=== PATIENT | female | born 1975 | race Two or more races ===

== ENCOUNTER 2025-05-14 16:33 | Emergency (ER) | payer MEDICAID, OTHER ==
[~2025-05-14] VITALS: Ht 170.2 cm; Wt 92.1 kg
[2025-05-14 18:27] VITALS: BP 141/80; PULSE 88; RESP 16; TEMP 98.1; O2SAT 97
[2025-05-14] MEDS: SODIUM CHLORIDE 0.9% 500 ML IVB ONE (18:29)
[2025-05-14] MEDS: KETOROLAC TROMETH 30 MG/ML 1ML VIAL IV ONE (18:29)
[2025-05-14] MEDS: METOCLOPRAMIDE HCL 5MG/ml INJ 2ml VIAL IV ONE (18:29)
[2025-05-14 18:41] LABS: Hematocrit 41.2 % (36.0-46.0); Hemoglobin 14.1 g/dL (12.2-16.2); Mean Corpuscular Hemoglobin 28.3 pg (28.0-32.0); Mean Corpuscular Volume 82.9 fL (80.0-100.0); Nucleated Red Blood Cells % 0.1 %
[2025-05-14 18:49] LABS: Chloride 106 mmol/L (98-107); Potassium 3.9 mmol/L (3.5-5.1); Sodium 141 mmol/L (136-145)
[2025-05-14 18:50] LABS: Anion Gap 7 (5-15); Carbon Dioxide 28 mmol/L (20-31)
[2025-05-14 18:51] LABS: Calcium 8.9 mg/dL (8.7-10.4)
[2025-05-14 18:55] LABS: BUN/Creatinine Ratio 15.2 (10.0-20.0); Blood Urea Nitrogen 12 mg/dL (9-23); Glucose 165 mg/dL (74-106)
[2025-05-14 19:06] LABS: Urine Protein, UAD Negative (Negative)
--- NOTE | 2025-05-14 19:28 | ED.PDOC ---
GI ASSESSMENT HPI Comments 50-year-old female presented to the emergency department complaining of left flank pain going to the abdomen for the past few days with the nausea Chief Complaint: Abdominal Pain Time Seen by MD: 17:30 Reviewed Notes: Nurses Notes, Medications, Allergies Allergies: Coded Allergies: NO KNOWN ALLERGIES (Unverified , 05/14/25) Home Meds Active Scripts Ondansetron Odt 4MG Tab (ZOFRAN PO) 4 Mg Tb, 4 MG PO TID for 10 Days, #30 TAB ODT TAB-DISSOLVE IN MOUTH, THEN SWALLOW Prov:MARY DASILVA MD 05/14/25 Ciprofloxacin Hcl (Cipro) 500 Mg Tab, 1 TAB PO BID for 10 Days, #20 TAB Prov:MARY DASILVA MD 05/14/25 Information Source: Patient Mode of Arrival: Ambulatory Timing: Days Duration: Since onset Quality: Aching, Cramping, Stabbing Vomitus: None Stool: Normal Severity: Moderate, Severe Recent: None Recent Hx of: Urolithiasis Pain Location: LLQ, Suprapubic (lank), Other Modifying Factors: Nothing Associated sign and symptoms: Nausea, Abdominal Pain Past Medical History PAST MEDICAL HISTORY: Asthma Surgical History: Denies all surgeries POSTING SPECIALIST History: No Pertinent POSTING SPECIALIST History Family History Family History: Reviewed,noncontributory to illness, No family hx of Cancer, No family hx of DM, No family hx of Heart ralph, No family hx of HTN, No family hx ofKidney ralph, No family hx of Liver ralph, No family hx of Lung ralph, No family hx of Stroke Social History Smoker: Non-Smoker Alcohol: Denies ETOH Use Drugs: Denies Drug Use Constitutional: denies: chills, diaphoresis, fatigue, fever, malaise, sweats, weakness, others EENTM: denies: blurred vision, double vision, ear bleeding, ear discharge, ear drainage, ear pain, ear ringing, eye pain, eye redness, hearing loss, mouth pain, mouth swelling, nasal discharge, nose bleeding, nose congestion, nose pain, photophobia, tearing, throat pain, throat swelling, voice changes, others Respiratory: denies: cough, hemoptysis, orthopnea, SOB at rest, shortness of breath, SOB with excertion, stridor, wheezing, others Cardiovascular: denies: chest pain, dizzy spells, diaphoresis, Dyspnea on exertion, edema, irregular heart beat, left arm pain, lightheadedness, palpitations, PND, syncope, others Gastrointestinal: reports: abdominal pain Genitourinary: reports: flank pain; denies: abnormal vagina bleeding, burning, dyspareunia, dysuria, frequency, hematuria, incontinence, pain, , vagina discharge, urgency, others Neurological: denies: dizziness, fainting, headache, left sided numbness, left sided weakness, numbness, paresthesia, pre-existing deficit, right sided numbness, right sided weakness, seizure, speech problems, tingling, tremors, weakness, others Musculoskeletal: reports: back pain; denies: gout, joint pain, joint swelling, muscle pain, muscle stiffness, neck pain, others Integumetry: denies: bruises, change in color, change in hair/nails, dryness, laceration, lesions, lumps, rash, wounds, others Allergic/Immunocompromised: denies: Difficulty Healing, Frequent Infections, Hives, Itching, others Hematologic/Lymphatic: denies: anemia, blood clots, easy bleeding, easy bruising, swollen glands, others Endocrine: denies: excessive hunger, excessive sweating, excessive thirst, excessive urination, flushing, intolerance to cold, intolerance to heat, unexplained weight gain, unexplained weight loss, others Psychiatric: denies: anxiety, bipolar disorder, depression, hopeless, panic disorder, schizophrenia, sleepless, suicidal, others All Other Systems: Reviewed and Negative Physical Exam General Appearance: Moderate Distress, Obese HEENT: Normal ENT Inspection, PERRL/EOMI Neck: Full Range of Motion, Non-Tender, Normal, Normal Inspection Respiratory: Chest Non-Tender, Lungs Clear, No Accessory Muscle Use, No Respiratory Distress, Normal Breath Sounds Cardiovascular: No Edema, No JVD, No Murmur, No Gallop, Normal Peripheral Pulses, Regular Rate/Rhythm Breast Exam: Deferred Gastrointestinal: LUQ, Other (Left flank) Genitalia: Deferred Pelvic: Deferred Rectal: Deferred Extremities: No calf tenderness, Normal capillary refill, Normal inspection, Normal range of motion, Non-tender, No pedal edema Neurologic: Alert, conveyor maintenance mechanic II-XII nml as Tested, No Motor Deficits, Normal Affect, Normal Mood, No Sensory Deficits Cerebellar Function: Normal Reflexes: Normal Skin: Dry, Normal Color, Warm Peripheral Pulses: 1+ carotid (R), 1+ carotid (L) Lymphatic: No Adenopathy Was a procedure done? Was a procedure done?: No GI differential Dx Differential Diagnosis: UTI, Urolithiasis, Electrolyte Imbalance, Anemia X-Ray, Labs, Meds, VS Vital Signs Date Time Temp Pulse Resp B/P (MAP) Pulse Ox O2 Delivery O2 Flow Rate FiO2 05/14/25 18:27 88 16 97 Room Air* 0 21 05/14/25 18:27 98.1 88 16 141/80 (100) 97 98.1 05/14/25 16:34 98.8 87 16 143/108 97 98.8 Lab Test 05/14/25 18:56 05/14/25 18:23 Range/Units Urine Color Light-yellow Yellow Urine Clarity Clear Clear Urine pH 5.5 5.0-9.0 Urine Specific [place] 1.021 1.001-1.035 Urine Protein Negative Negative Urine Ketones Negative Negative Urine Blood 1+ H Negative /uL Urine Nitrite Negative Negative Urine Bilirubin Negative Negative Urine Urobilinogen Normal Negative mg/dL Urine Leukocyte Esterase 2+ Negative /uL Urine RBC 6 0 - 4 /hpf Urine Microscopic WBC 7 H 0-5 /HPF Urine Squamous Epithelial Cells Few <5 /hpf Urine Bacteria Few H None Seen /hpf Urine Glucose Normal Normal mg/dL White Blood Count 9.0 4.4-10.8 10^3/uL Red Blood Count 4.97 4.0-5.20 10^6/uL Hemoglobin 14.1 12.2-16.2 g/dL Hematocrit 41.2 36.0-46.0 % Mean Corpuscular Volume 82.9 80.0-100.0 fL Mean Corpuscular Hemoglobin 28.3 28.0-32.0 pg Mean Corpuscular Hemoglobin Concent 34.2 32.0-36.0 g/dL Red Cell Distribution Width 13.7 11.8-14.3 % Platelet Count 343 140-450 10^3/uL Mean Platelet Volume 8.2 6.9-10.8 fL Neutrophils (%) (Auto) 57.9 37.0-80.0 % Lymphocytes (%) (Auto) 32.1 10.0-50.0 % Monocytes (%) (Auto) 6.2 0.0-12.0 % Eosinophils (%) (Auto) 3.2 0.0-7.0 % Basophils (%) (Auto) 0.6 0.0-2.0 % Neutrophils # (Auto) 5.2 1.6-8.6 10 ^3/uL Lymphocytes # (Auto) 2.9 0.4-5.4 10 ^3/uL Monocytes # (Auto) 0.6 0-1.3 10 ^3/uL Eosinophils # (Auto) 0.3 0-0.8 10 ^3/uL Basophils # (Auto) 0.1 0-0.2 10 ^3/uL Nucleated Red Blood Cells 0.1 % Sodium Level 141 136-145 mmol/L Potassium Level 3.9 3.5-5.1 mmol/L Chloride Level 106 98-107 mmol/L Carbon Dioxide Level 28 20-31 mmol/L Anion Gap 7 5-15 Blood Urea Nitrogen 12 9-23 mg/dL Creatinine 0.79 0.550-1.02 mg/dL Glomerular Filtration Rate Calc 92 >90 mL/min BUN/Creatinine Ratio 15.2 10.0-20.0 Serum Glucose 165 H 74-106 mg/dL Calcium Level 8.9 8.7-10.4 mg/dL Current Medications Medications (Trade) Dose Ordered Sig/Brandy Route Start Time Stop Time Status Last Admin Metoclopramide HCl (Reglan Injection) 10 mg ONCE ONCE IV 05/14/25 18:15 05/14/25 18:19 DC 05/14/25 18:29 Sodium Chloride 500 ml @ 500 mls/hr Q1H ONCE IVB 05/14/25 18:15 05/14/25 19:14 DC 05/14/25 18:29 Ketorolac Tromethamine (Toradol Injection) 30 mg ONCE ONCE IV 05/14/25 18:15 05/14/25 18:19 DC 05/14/25 18:29 X-Ray, Labs, Meds, VS Comment Course in the emergency department eventful patient with a blood pressure 143/ 108 and severe left flank pain CBC is normal Urine shows 1+ blood 2+ leukocyte esterase and bacteria BNP blood sugar and 160s rest is normal CT abdomen and pelvis shows hepatic steatosis other issues Patient will be discharged home to follow up with the his PCP Time of 1ST Reevaluation: 17:30 Reevaluation 1ST: Unchanged Time of 2ND Reevaluation: 21:16 Reevaluation 2ND: Improved Consultation: PCP Patient Education/Counseling: Diagnosis, Treatment, Prognosis, Need For Follow Up Family Education/Counseling: Diagnosis, Treatment, Prognosis, Need For Follow Up, No Family Present SEPSIS Sepsis Screen Date sepsis recognized/suspect: May 14, 2025 Time Sepsis recognized/suspect: 1826 Recent Procedure: No On Antibiotic Therapy: No Respiratory Rate >20: No Heart Rate >90: No Temp<36 C (96.8 F) or >38.3 C: No SBP <90 or MAP <65 mmHG: No New Acute Mental Status Change: No Is the patient on CPAP, BIPAP,: No Physician Orders Ct Ab Pel Wo Con-No Oral Or Iv (05/14/25 18:15) Heplock Iv (05/14/25 18:15) Vital Signs Date Time Temp Pulse Resp B/P (MAP) Pulse Ox O2 Delivery O2 Flow Rate FiO2 05/14/25 18:27 88 16 97 Room Air* 0 21 05/14/25 18:27 98.1 88 16 141/80 (100) 97 98.1 05/14/25 16:34 98.8 87 16 143/108 97 98.8 Laboratory Tests Test 05/14/25 18:23 White Blood Count 9.0 10^3/uL (4.4-10.8) Medications Medications Dose Ordered Sig/Brandy Route Start Time Stop Time Status Last Admin Dose Admin Ketorolac Tromethamine 30 mg ONCE ONCE IV 05/14/25 18:15 05/14/25 18:19 DC 05/14/25 18:29 Metoclopramide HCl 10 mg ONCE ONCE IV 05/14/25 18:15 05/14/25 18:19 DC 05/14/25 18:29 Sodium Chloride 500 ml @ 500 mls/hr Q1H ONCE IVB 05/14/25 18:15 05/14/25 19:14 DC 05/14/25 18:29 Departure 1 Departure Time of Disposition: 21:12 Impression: Primary Impression: Urinary tract infection Qualified Codes: N30.01 - Acute cystitis with hematuria Additional Impression: Left flank pain Disposition: HOME / SELF CARE / HOMELESS Condition: Fair Additional Instructions: Push fluids and follow up with your PCP e-Prescriptions Ondansetron Odt 4MG Tab (ZOFRAN PO) 4 Mg Tb 4 MG PO TID for 10 Days, #30 TAB ODT TAB-DISSOLVE IN MOUTH, THEN SWALLOW Prov: MARY DASILVA MD 05/14/25 Ciprofloxacin Hcl (Cipro) 500 Mg Tab 1 TAB PO BID for 10 Days, #20 TAB Prov: MARY DASILVA MD 05/14/25 Discharged With: Self Critical Care Note Critical Care Time?: No Stability Stability form required: No Heart Score Heart Score: Heart Score Response (Comments) Value History N/A 0 EKG N/A 0 Age 45-64 1 Risk Factors 1 or 2 risk factors 1 Troponin N/A 0 Total 2 MARY DASILVA MD May 14, 2025 19:28
--- NOTE | 2025-05-14 19:28 | DVH ---
Exam: CT CT AB PEL WO CON-NO ORAL OR IV History: Ureteral calculus Comparison Study: CT CT AB PEL WITH IV CON ONLY on DOS: 11/09/24 TECHNIQUE: Multidetector CT of the abdomen and pelvis was performed from lung bases to pubic symphysi s. Imaging was performed without IV contrast. Axial, coronal, and sagittal multiplanar reformats were obtained from the axial data set by the technologist. RADIATION DOSE: CTDI vol 13.27 mGy. DLP 806.86 mGy.cm Findings: Limited evaluation of the solid organs in the absence of IV contrast. Lungs: Mild basilar atelectasis. Liver: Diffuse hypoattenuation of the liver suggestive of hepatic steatosis. Hepatomegaly. Spleen: Unremarkable. Pancreas: Unremarkable. Gallbladder: Prior cholecystectomy. Adrenals: Unremarkable Kidneys: Punctate left nephrolithiasis. Too small to characterize right renal lesions. Pelvic Viscera: Unremarkable. Vasculature: Unremarkable. Retroperitoneum: Unremarkable. Bowel: No bowel obstruction. Appendix is normal. Musculoskeletal: Unremarkable. Soft tissues: Tiny fat containing umbilical hernia. Impression: 1. No acute abdominopelvic abnormality. 2. Incidental findings as detailed.
[2025-05-14] MEDS ORDERED: CIPR-173 PO (21:14)
[2025-05-14] MEDS ORDERED: ZOFR4T PO (21:14)
== END 2025-05-14 21:30 | disposition home or self-care (01) ==
LOC: ER 16:33
DX: N39.0 Urinary tract infection, site not specified (principal); R10.A2 Flank pain, left side; J45.909 Unspecified asthma, uncomplicated; Z79.899 Other long term (current) drug therapy
CPT/HCPCS: 36415; 74176; 80048; 81001; 85025; 96361; 96374; 96375; 99285; J1885; J2765; J7040

== ENCOUNTER 2025-07-06 12:03 | Inpatient (IN) | payer MEDICAID ==
[~2025-07-06] VITALS: Ht 160 cm; Wt 88.4 kg
[~2025-07-06 12:03] MED LIST: CIPR-173 PO; ZOFR4T PO
--- NOTE | 2025-07-06 13:03 | ED.PDOC ---
GI ASSESSMENT HPI Comments 50 y/o F, presents to the ED for CC of constipation presents to the ED for CC of constipation. Patient states, she has been experiencing abdominal pain with associated constipation, nausea, and vomiting x1week. Patient reports, to have had a "small" and "dark" stool today (07/06/25). At this time patient c/o 9/10 abdominal pain. Patient denies fever, chills, or hematemesis. No other symptoms or modifying factors are present at this time. Chief Complaint: Abdominal Pain Time Seen by MD: 13:00 Reviewed Notes: Nurses Notes, Medications, Allergies Allergies: Coded Allergies: NO KNOWN ALLERGIES (Unverified , 05/14/25) Home Meds Active Scripts Ondansetron Odt 4MG Tab (ZOFRAN PO) 4 Mg Tb, 4 MG PO TID for 10 Days, #30 TAB ODT TAB-DISSOLVE IN MOUTH, THEN SWALLOW Prov:MARY DASILVA MD 05/14/25 Ciprofloxacin Hcl (Cipro) 500 Mg Tab, 1 TAB PO BID for 10 Days, #20 TAB Prov:MARY DASILVA MD 05/14/25 Information Source: Patient Mode of Arrival: Ambulatory Timing: Weeks Duration: Since onset Prehospital treatment: None Vomitus: Watery Stool: Watery Severity: Moderate Recent: None Recent Hx of: None Pain Location: Diffuse Modifying Factors: Nothing Associated sign and symptoms: Nausea, Vomiting, Diarrhea, Abdominal Pain Past Medical History PAST MEDICAL HISTORY: Asthma Surgical History: Cholecystectomy OFFICE SERVICES MANAGER History: No Pertinent OFFICE SERVICES MANAGER History Family History Family History: Reviewed,noncontributory to illness, No family hx of Cancer, No family hx of DM, No family hx of Heart ralph, No family hx of HTN, No family hx ofKidney ralph, No family hx of Liver ralph, No family hx of Lung ralph, No family hx of Stroke Social History Smoker: Non-Smoker Alcohol: Denies ETOH Use Drugs: Denies Drug Use Constitutional: denies: chills, diaphoresis, fatigue, fever, malaise, sweats, weakness, others EENTM: denies: blurred vision, double vision, ear bleeding, ear discharge, ear drainage, ear pain, ear ringing, eye pain, eye redness, hearing loss, mouth pain, mouth swelling, nasal discharge, nose bleeding, nose congestion, nose pain, photophobia, tearing, throat pain, throat swelling, voice changes, others Respiratory: denies: cough, hemoptysis, orthopnea, SOB at rest, shortness of breath, SOB with excertion, stridor, wheezing, others Cardiovascular: denies: chest pain, dizzy spells, diaphoresis, Dyspnea on exertion, edema, irregular heart beat, left arm pain, lightheadedness, palpitations, PND, syncope, others Gastrointestinal: reports: abdominal pain, constipated, melena, nausea, vomiting; denies: abdomen distended, blood streaked bowels, diarrhea, dysphagia, difficulty swallowing, hematemesis, poor appetite, poor fluid intake, rectal bleeding, rectal pain, others Genitourinary: denies: abnormal vagina bleeding, burning, dyspareunia, dysuria, flank pain, frequency, hematuria, incontinence, pain, , vagina discharge, urgency, others Neurological: denies: dizziness, fainting, headache, left sided numbness, left sided weakness, numbness, paresthesia, pre-existing deficit, right sided numbness, right sided weakness, seizure, speech problems, tingling, tremors, weakness, others Musculoskeletal: denies: back pain, gout, joint pain, joint swelling, muscle pain, muscle stiffness, neck pain, others Integumetry: denies: bruises, change in color, change in hair/nails, dryness, laceration, lesions, lumps, rash, wounds, others Allergic/Immunocompromised: denies: Difficulty Healing, Frequent Infections, Hives, Itching, others Hematologic/Lymphatic: denies: anemia, blood clots, easy bleeding, easy bruising, swollen glands, others Endocrine: denies: excessive hunger, excessive sweating, excessive thirst, excessive urination, flushing, intolerance to cold, intolerance to heat, unexplained weight gain, unexplained weight loss, others Psychiatric: denies: anxiety, bipolar disorder, depression, hopeless, panic disorder, schizophrenia, sleepless, suicidal, others All Other Systems: Reviewed and Negative Physical Exam General Appearance: Moderate Distress HEENT: Normal ENT Inspection, Pharynx Normal, TMs Normal Neck: Full Range of Motion, Non-Tender, Normal, Normal Inspection Respiratory: Chest Non-Tender, Lungs Clear, No Accessory Muscle Use, No Respiratory Distress, Normal Breath Sounds Cardiovascular: No Edema, No JVD, No Murmur, No Gallop, Normal Peripheral Pulses, Regular Rate/Rhythm Breast Exam: Deferred Gastrointestinal: Diffuse, No Organomegaly, No Pulsatile Mass, Normal Bowel Sounds, Soft, Tenderness Genitalia: Deferred Pelvic: Deferred Rectal: Deferred Extremities: No calf tenderness, Normal capillary refill, No pedal edema Musculoskeletal : Apperance: Normal Neurologic: Alert, sample sawyer II-XII nml as Tested, No Motor Deficits, Normal Affect, Normal Mood, No Sensory Deficits Cerebellar Function: Normal Reflexes: Normal Skin: Dry, Normal Color, Warm Lymphatic: No Adenopathy Was a procedure done? Was a procedure done?: No GI differential Dx Differential Diagnosis: Bowel Obstruction, Constipation, Diverticular disease, Gastritis/PUD, Gastroenteritis, UTI, Food Poisoning, Bacterial, Viral X-Ray, Labs, Meds, VS Vital Signs Date Time Temp Pulse Resp B/P (MAP) Pulse Ox O2 Delivery O2 Flow Rate FiO2 07/06/25 13:57 89 17 136/85 07/06/25 13:37 98.5 87 17 136/87 (103) 98 98.5 07/06/25 13:35 89 17 96 Room Air* 0 21 07/06/25 12:04 98.0 97 18 122/58 96 98.0 Lab Test 07/06/25 14:48 07/06/25 13:16 Range/Units Urine Color Pending Urine Clarity Pending Urine pH Pending Urine Specific [place] Pending Urine Protein Pending Urine Ketones Pending Urine Blood Pending Urine Nitrite Pending Urine Bilirubin Pending Urine Urobilinogen Pending Urine Leukocyte Esterase Pending Urine RBC Pending Urine Microscopic WBC Pending Urine Squamous Epithelial Cells Pending Urine Bacteria Pending Urine Glucose Pending White Blood Count 7.8 4.4-10.8 10^3/uL Red Blood Count 5.32 H 4.0-5.20 10^6/uL Hemoglobin 15.0 12.2-16.2 g/dL Hematocrit 44.4 36.0-46.0 % Mean Corpuscular Volume 83.4 80.0-100.0 fL Mean Corpuscular Hemoglobin 28.1 28.0-32.0 pg Mean Corpuscular Hemoglobin Concent 33.7 32.0-36.0 g/dL Red Cell Distribution Width 13.4 11.8-14.3 % Platelet Count 313 140-450 10^3/uL Mean Platelet Volume 8.3 6.9-10.8 fL Neutrophils (%) (Auto) 59.1 37.0-80.0 % Lymphocytes (%) (Auto) 31.3 10.0-50.0 % Monocytes (%) (Auto) 6.3 0.0-12.0 % Eosinophils (%) (Auto) 2.7 0.0-7.0 % Basophils (%) (Auto) 0.6 0.0-2.0 % Neutrophils # (Auto) 4.6 1.6-8.6 10 ^3/uL Lymphocytes # (Auto) 2.5 0.4-5.4 10 ^3/uL Monocytes # (Auto) 0.5 0-1.3 10 ^3/uL Eosinophils # (Auto) 0.2 0-0.8 10 ^3/uL Basophils # (Auto) 0 0-0.2 10 ^3/uL Nucleated Red Blood Cells 0.0 % Sodium Level 139 136-145 mmol/L Potassium Level 4.1 3.5-5.1 mmol/L Chloride Level 102 98-107 mmol/L Carbon Dioxide Level 28 20-31 mmol/L Anion Gap 9 5-15 Blood Urea Nitrogen 9 9-23 mg/dL Creatinine 0.76 0.550-1.02 mg/dL Glomerular Filtration Rate Calc 97 >90 mL/min BUN/Creatinine Ratio 11.8 10.0-20.0 Serum Glucose 270 H 74-106 mg/dL Calcium Level 9.6 8.7-10.4 mg/dL Total Bilirubin 0.4 0.2-1.0 mg/dL Aspartate Amino Transferase (AST) 50 H 13-40 U/L Alanine Aminotransferase (ALT) 101 H 7-40 U/L Alkaline Phosphatase 138 H 46-116 U/L Total Protein 7.8 5.7-8.2 g/dL Albumin 4.4 3.2-4.8 g/dL Lipase 51 12-53 U/L Current Medications Medications (Trade) Dose Ordered Sig/Brandy Route Start Time Stop Time Status Last Admin Ondansetron HCl (Zofran) 4 mg ONCE ONCE IV 07/06/25 13:15 07/06/25 13:16 DC 07/06/25 13:57 Sodium Chloride 1,000 ml @ 1,000 mls/hr Q1H ONCE IVB 07/06/25 13:15 07/06/25 14:14 DC 07/06/25 13:15 Morphine Sulfate 4 mg ONCE ONCE IV 07/06/25 13:15 07/06/25 13:16 DC 07/06/25 13:57 Pantoprazole Sodium (Protonix) 40 mg ONCE ONCE IV 07/06/25 13:15 07/06/25 13:16 DC 07/06/25 13:56 CT ABD PEL; IMPRESSION: 1. Punctate left renal calculi. No hydronephrosis. 2. Hepatic steatosis. 3. A couple pulmonary nodules in the left lower lobe measuring up to 4mm. If the patient is high risk for lung cancer, consider follow-up chest CT in 12 months The patient had an IV Hep-Lock established The patient was given a 1 L bolus of normal saline The patient was given Zofran 4 mg IV push for the nausea. The patient was given Protonix 40 mg IV push The patient was given morphine 4 mg IV push The patient's liver enzymes are elevated The patient's CBC and chemistry panel are within normal limits The urine test is negative for any infection At this time, the patient is admitted Images Reviewed?: Images reviewed and evaluated by me Time of 1ST Reevaluation: 13:30 Reevaluation 1ST: Unchanged Patient Education/Counseling: Diagnosis, Treatment, Prognosis Family Education/Counseling: No Family Present SEPSIS Sepsis Screen Date sepsis recognized/suspect: Jul 06, 2025 Time Sepsis recognized/suspect: 1206 Recent Procedure: No On Antibiotic Therapy: No Respiratory Rate >20: No Heart Rate >90: Yes Temp<36 C (96.8 F) or >38.3 C: No SBP <90 or MAP <65 mmHG: No New Acute Mental Status Change: No Is the patient on CPAP, BIPAP,: No Physician Orders Urinalysis (07/06/25 13:03) Ct Ab Pel Wo Con-No Oral Or Iv (07/06/25 13:03) Heplock Iv (07/06/25 13:03) Vital Signs Date Time Temp Pulse Resp B/P (MAP) Pulse Ox O2 Delivery O2 Flow Rate FiO2 07/06/25 13:57 89 17 136/85 07/06/25 13:37 98.5 87 17 136/87 (103) 98 98.5 07/06/25 13:35 89 17 96 Room Air* 0 21 07/06/25 12:04 98.0 97 18 122/58 96 98.0 Laboratory Tests Test 07/06/25 13:16 White Blood Count 7.8 10^3/uL (4.4-10.8) Medications Medications Dose Ordered Sig/Brandy Route Start Time Stop Time Status Last Admin Dose Admin Morphine Sulfate 4 mg ONCE ONCE IV 07/06/25 13:15 07/06/25 13:16 DC 07/06/25 13:57 Ondansetron HCl 4 mg ONCE ONCE IV 07/06/25 13:15 07/06/25 13:16 DC 07/06/25 13:57 Pantoprazole Sodium 40 mg ONCE ONCE IV 07/06/25 13:15 07/06/25 13:16 DC 07/06/25 13:56 Sodium Chloride 1,000 ml @ 1,000 mls/hr Q1H ONCE IVB 07/06/25 13:15 07/06/25 14:14 DC 07/06/25 13:15 Departure 1 Departure Time of Disposition: 15:33 Impression: Primary Impression: Intractable abdominal pain Disposition: ADMITTED INPATIENT Admit to: Med Surg Condition: Fair Critical Care Note Critical Care Time?: No Stability Stability form required: Yes Unstable for transfer: ED Physician Assesment (Clinical assesment) Heart Score Heart Score: Heart Score Response (Comments) Value History N/A 0 EKG N/A 0 Age N/A 0 Risk Factors N/A 0 Troponin N/A 0 Total 0 I personally scribed for ANALY ANDREA MD ([email or web address]) on 07/06/25 at 13:03. Electronically submitted by Yina Bailey ([email or web address] I personally scribed for ANALY ANDREA MD ([email or web address]) on 07/06/25 at 13:33. Electronically submitted by Yina Bailey ([email or web address]). I personally scribed for ANALY ANDREA MD ([email or web address]) on 07/06/25 at 13:34. Electronically submitted by Yina Bailey ([email or web address]). I personally scribed for ANALY ANDREA MD ([email or web address]) on 07/06/25 at 14:03. Electronically submitted by Yina Bailey ([email or web address]). ANALY ANDREA MD Jul 06, 2025 13:03
[2025-07-06] MEDS: SODIUM CHLORIDE 0.9% 1,000 ML IVB ONE (13:15)
[2025-07-06 13:33] LABS: Hematocrit 44.4 % (36.0-46.0); Hemoglobin 15.0 g/dL (12.2-16.2); Mean Corpuscular Hemoglobin 28.1 pg (28.0-32.0); Mean Corpuscular Volume 83.4 fL (80.0-100.0); Nucleated Red Blood Cells % 0.0 %
[2025-07-06 13:35] VITALS: PULSE 89; RESP 17; O2SAT 96
[2025-07-06 13:44] LABS: Albumin 4.4 g/dL (3.2-4.8); Anion Gap 9 (5-15); BUN/Creatinine Ratio 11.8 (10.0-20.0); Calcium 9.6 mg/dL (8.7-10.4); Carbon Dioxide 28 mmol/L (20-31); Chloride 102 mmol/L (98-107); Lipase 51 U/L (12-53); Potassium 4.1 mmol/L (3.5-5.1); Sodium 139 mmol/L (136-145); Total Protein 7.8 g/dL (5.7-8.2)
[2025-07-06 13:45] LABS: Bilirubin, Total 0.4 mg/dL (0.2-1.0)
[2025-07-06 13:46] LABS: Alanine Aminotransferase 101 U/L (7-40); Alkaline Phosphatase 138 U/L (46-116); Blood Urea Nitrogen 9 mg/dL (9-23); Glucose 270 mg/dL (74-106)
--- NOTE | 2025-07-06 13:48 | DVH ---
EXAM DESCRIPTION: CT CT AB PEL WO CON-NO ORAL OR IV CLINICAL HISTORY: left sided abd pain COMPARISON: CT CT AB PEL WO CON-NO ORAL OR IV on DOS: 05/14/25, CT CT AB PEL WITH IV CON ONLY on DOS: 11/09/24 TECHNIQUE: CT abdomen and pelvis without IV contrast was performed. Coronal and sagittal MPR images were generated.CTDI/ DLP = 21.14 / 1068.98 Dose reduction technique with one or more of the following methods was performed: Automated exposure control, adjustment of the mA and/or kV according to patient size, use of iterative reconstruction technique FINDINGS: Lower chest: A couple pulmonary nodules in the left lower lobe measuring up to 4 mm. Liver: Diffusely decreased in attenuation. . Biliary: Status post cholecystectomy. No biliary ductal dilatation. Pancreas: No fat stranding or focal lesion. Spleen: Normal in size.. Adrenal glands: No nodularity. Kidneys: A couple Punctate left renal calculi. No hydroureteronephrosis. . Bladder: Underdistended, limiting evaluation. Reproductive organs: Normal. Bowel: No bowel wall thickening or dilatation. Normal appendix.. Peritoneum: No free fluid. No free air. Vessels: Normal caliber abdominal aorta. . Lymph nodes: No suspicious lymph nodes. Soft tissues: Unremarkable. . Osseous structures: No acute fracture or subluxation. No suspicious osseous lesions. IMPRESSION: 1. Punctate left renal calculi. No hydronephrosis. 2. Hepatic steatosis. 3. A couple pulmonary nodules in the left lower lobe measuring up to 4mm. If the patient is high risk for lung cancer, consider follow-up chest CT in 12 months
[2025-07-06] MEDS: PANTOPRAZOLE 40 MG/10 ML VIAL INJ IV ONE (13:56)
[2025-07-06] MEDS: MORPHINE SULFATE 4 MG/ML SYR/VIAL IV ONE (13:57)
[2025-07-06] MEDS: ONDANSETRON HCL 4 MG/2 ML VIAL IV ONE (13:57)
[2025-07-06 15:49] LABS: Urine Protein, UAD TRACE (Negative)
[2025-07-06] MEDS ORDERED: MORPHINE SULFATE INJ 2 MG/ml SYRG IV PRN (16:30)
[2025-07-06] MEDS ORDERED: ACETAMINOPHEN 325 MG TAB PO PRN (16:30)
[2025-07-06] MEDS ORDERED: HYDROcodone-ACET 5/325MG TAB PO PRN (16:30)
[2025-07-06] MEDS ORDERED: ONDANSETRON HCL 4 MG/2 ML VIAL IV PRN (16:30)
[2025-07-06 18:11] VITALS: BP 150/100; PULSE 80; RESP 20; TEMP 97.4; O2SAT 96
[2025-07-06 18:22] VITALS: O2SAT 99
[2025-07-06 18:26] VITALS: BP 150/100; PULSE 80; RESP 20; TEMP 98.7; O2SAT 99
--- NOTE | 2025-07-06 19:00 | DVHHP2 ---
History of Present Illness Reason for Visit: Abdominal pain History of Present Illness 50-year-old female presents for evaluation of abdominal pain. Patient reports a one-week history of diffuse abdominal pain with associated bloating. She also reports mild dysuria. She states having constipation as well. No fever or chills. She has also had some episodes of nausea with vomiting. Past Medical History Asthma Past Surgical History Cholecystectomy Family History Noncontributory Smoke: No ALCOHOL: none Drugs: None Lives: with Family Review of Systems Review of Systems Review of systems are currently negative otherwise addressed in HPI. Allergies: Coded Allergies: NO KNOWN ALLERGIES (Unverified , 05/14/25) Medications Current Medications Medications Dose Ordered Sig/Brandy Route Start Time Stop Time Status Last Admin Dose Admin Pantoprazole Sodium 40 mg DAILY IV 07/07/25 10:00 Docusate Sodium 100 mg BID PO 07/06/25 22:00 Ceftriaxone Sodium 50 ml @ 100 mls/hr DAILY@09 IV 07/07/25 09:00 Acetaminophen/ Hydrocodone Bitart 1 tab Q4HP PRN PO 07/06/25 16:30 Ondansetron HCl 4 mg Q4HP PRN IV 07/06/25 16:30 Acetaminophen 650 mg Q6HP PRN PO 07/06/25 16:30 Morphine Sulfate 2 mg Q8HPRN PRN IV 07/06/25 16:30 UNV Morphine Sulfate 2 mg Q8HPRN PRN IV 07/06/25 16:45 Exam Vital Signs Vital Signs Date Time Temp Pulse Resp B/P (MAP) Pulse Ox O2 Delivery O2 Flow Rate FiO2 07/06/25 18:26 98.7 80 20 150/100 (117) 99 98.7 07/06/25 18:22 Room Air* 0 21 Exam Gen: 50-year-old female in mild distress Skin: Warm, dry, normal color and texture, no rash. HEENT: Normocephalic atraumatic, mucous membranes moist and pink. Neck: Cervical and supraclavicular nodes normal without enlargement, trachea is midline, thyroid gland is normal without masses. Pulmonary: Clear to auscultation and percussion bilaterally. Cardiac: Regular rate and rhythm. No murmur Abdomen: Soft, nontender, mild distention, bowel sounds present all 4 quadrants, no guarding, no rigidity, no organomegaly. Extremities: No cyanosis, clubbing, no edema Neuro: Cranial nerves II through XII grossly intact, normal affect and speech, no focal motor deficits. Labs/Xrays ORDERING PHYSICIAN: ANALY ANDREA MD PROCEDURE(s): ABPL - CT AB PEL WO CON-NO ORAL OR IV REASON: left sided abd pain ORDER NUMBER(s): [id number], ACCESSION NUMBER(s): [id number] EXAM DESCRIPTION: CT CT AB PEL WO CON-NO ORAL OR IV CLINICAL HISTORY: left sided abd pain COMPARISON: CT CT AB PEL WO CON-NO ORAL OR IV on DOS: 05/14/25, CT CT AB PEL WITH IV CON ONLY on DOS: 11/09/24 TECHNIQUE: CT abdomen and pelvis without IV contrast was performed. Coronal and sagittal MPR images were generated.CTDI/ DLP = 21.14 / 1068.98 Dose reduction technique with one or more of the following methods was performed: Automated exposure control, adjustment of the mA and/or kV according to patient size, use of iterative reconstruction technique FINDINGS: Lower chest: A couple pulmonary nodules in the left lower lobe measuring up to 4 mm. Liver: Diffusely decreased in attenuation. . Biliary: Status post cholecystectomy. No biliary ductal dilatation. Pancreas: No fat stranding or focal lesion. Spleen: Normal in size.. Adrenal glands: No nodularity. Kidneys: A couple Punctate left renal calculi. No hydroureteronephrosis. . Bladder: Underdistended, limiting evaluation. Reproductive organs: Normal. Bowel: No bowel wall thickening or dilatation. Normal appendix.. Peritoneum: No free fluid. No free air. Vessels: Normal caliber abdominal aorta. . Lymph nodes: No suspicious lymph nodes. Soft tissues: Unremarkable. . Osseous structures: No acute fracture or subluxation. No suspicious osseous lesions. IMPRESSION: 1. Punctate left renal calculi. No hydronephrosis. 2. Hepatic steatosis. 3. A couple pulmonary nodules in the left lower lobe measuring up to 4mm. If the patient is high risk for lung cancer, consider follow-up chest CT in 12 months ATED BY: PRASANNA PIÑA MD Labs Test 07/06/25 14:48 07/06/25 13:16 Range/Units Urine Color Light-yellow Yellow Urine Clarity Turbid H Clear Urine pH 5.5 5.0-9.0 Urine Specific [place] 1.022 1.001-1.035 Urine Protein Trace H Negative Urine Ketones Negative Negative Urine Blood 1+ H Negative /uL Urine Nitrite Negative Negative Urine Bilirubin Negative Negative Urine Urobilinogen Normal Negative mg/dL Urine Leukocyte Esterase 3+ Negative /uL Urine RBC 6 0 - 4 /hpf Urine Microscopic WBC 33 H 0-5 /HPF Urine Squamous Epithelial Cells Few <5 /hpf Urine Bacteria Few H None Seen /hpf Urine Glucose 3+ H Normal mg/dL White Blood Count 7.8 4.4-10.8 10^3/uL Red Blood Count 5.32 H 4.0-5.20 10^6/uL Hemoglobin 15.0 12.2-16.2 g/dL Hematocrit 44.4 36.0-46.0 % Mean Corpuscular Volume 83.4 80.0-100.0 fL Mean Corpuscular Hemoglobin 28.1 28.0-32.0 pg Mean Corpuscular Hemoglobin Concent 33.7 32.0-36.0 g/dL Red Cell Distribution Width 13.4 11.8-14.3 % Platelet Count 313 140-450 10^3/uL Mean Platelet Volume 8.3 6.9-10.8 fL Neutrophils (%) (Auto) 59.1 37.0-80.0 % Lymphocytes (%) (Auto) 31.3 10.0-50.0 % Monocytes (%) (Auto) 6.3 0.0-12.0 % Eosinophils (%) (Auto) 2.7 0.0-7.0 % Basophils (%) (Auto) 0.6 0.0-2.0 % Neutrophils # (Auto) 4.6 1.6-8.6 10 ^3/uL Lymphocytes # (Auto) 2.5 0.4-5.4 10 ^3/uL Monocytes # (Auto) 0.5 0-1.3 10 ^3/uL Eosinophils # (Auto) 0.2 0-0.8 10 ^3/uL Basophils # (Auto) 0 0-0.2 10 ^3/uL Nucleated Red Blood Cells 0.0 % Sodium Level 139 136-145 mmol/L Potassium Level 4.1 3.5-5.1 mmol/L Chloride Level 102 98-107 mmol/L Carbon Dioxide Level 28 20-31 mmol/L Anion Gap 9 5-15 Blood Urea Nitrogen 9 9-23 mg/dL Creatinine 0.76 0.550-1.02 mg/dL Glomerular Filtration Rate Calc 97 >90 mL/min BUN/Creatinine Ratio 11.8 10.0-20.0 Serum Glucose 270 H 74-106 mg/dL Calcium Level 9.6 8.7-10.4 mg/dL Total Bilirubin 0.4 0.2-1.0 mg/dL Aspartate Amino Transferase (AST) 50 H 13-40 U/L Alanine Aminotransferase (ALT) 101 H 7-40 U/L Alkaline Phosphatase 138 H 46-116 U/L Total Protein 7.8 5.7-8.2 g/dL Albumin 4.4 3.2-4.8 g/dL Lipase 51 12-53 U/L SEPSIS Sepsis Screen Date sepsis recognized/suspect: Jul 06, 2025 Time Sepsis recognized/suspect: 1334 Recent Procedure: No On Antibiotic Therapy: No Respiratory Rate >20: No Heart Rate >90: No Temp<36 C (96.8 F) or >38.3 C: No SBP <90 or MAP <65 mmHG: No New Acute Mental Status Change: No Is the patient on CPAP, BIPAP,: No Physician Orders Ct Ab Pel Wo Con-No Oral Or Iv (07/06/25 13:03) Heplock Iv (07/06/25 13:03) Pantoprazole (Protonix) (07/07/25 10:00) Stool Occult Blood (07/06/25 16:25) Docusate Sodium Capsule (Colace Capsule) (07/06/25 22:00) Ceftriaxone 1gm/50ml (Rocephin) (07/07/25 09:00) Admit (07/06/25 16:25) Hydrocodone-Acet 5/325mg Tab ([place] 5/32 (07/06/25 16:30) Ondansetron Hcl (Zofran) (07/06/25 16:30) Complete Blood Count (07/07/25 04:00) Comprehensive Metabolic Panel (07/07/25 04:00) Condition: Stable (07/06/25 16:25) Acetaminophen Tablet (Tylenol Tablet) (07/06/25 16:30) Clear Liq Diet (07/06/25 Dinner) Bedrest With Bathroom Privileg (07/06/25 16:25) Morphine Sulfate Injection (07/06/25 16:45) * Gi Dvh Propeller Tester (07/06/25 18:22) Vital Signs Date Time Temp Pulse Resp B/P (MAP) Pulse Ox O2 Delivery O2 Flow Rate FiO2 07/06/25 18:26 98.7 80 20 150/100 (117) 99 98.7 07/06/25 18:22 99 Room Air* 0 21 07/06/25 14:27 85 15 138/85 07/06/25 13:57 89 17 136/85 07/06/25 13:37 98.5 87 17 136/87 (103) 98 98.5 07/06/25 13:35 89 17 96 Room Air* 0 21 07/06/25 12:04 98.0 97 18 122/58 96 98.0 Laboratory Tests Test 07/06/25 13:16 White Blood Count 7.8 10^3/uL (4.4-10.8) Medications Medications Dose Ordered Sig/Brandy Route Start Time Stop Time Status Last Admin Dose Admin Ceftriaxone Sodium 50 ml @ 100 mls/hr ONCE ONCE IV 07/06/25 16:30 07/06/25 16:59 DC 07/06/25 17:38 100 MLS/HR Morphine Sulfate 4 mg ONCE ONCE IV 07/06/25 13:15 07/06/25 13:16 DC 07/06/25 13:57 4 MG Ondansetron HCl 4 mg ONCE ONCE IV 07/06/25 13:15 07/06/25 13:16 DC 07/06/25 13:57 4 MG Pantoprazole Sodium 40 mg ONCE ONCE IV 07/06/25 13:15 07/06/25 13:16 DC 07/06/25 13:56 40 MG Sodium Chloride 1,000 ml @ 1,000 mls/hr Q1H ONCE IVB 07/06/25 13:15 07/06/25 14:14 DC 07/06/25 13:15 1,000 MLS/HR Assessment/Plan Assessment/Plan Assessment Acute abdominal pain Urinary tract infection Transaminitis, hepatic steatosis Plan Admit the patient to [facility] to the hospitalist GI consult Clear liquid diet Pain management Continue treatment per orders. Plan discussed with: Patient My Orders Orders - GLEN RIBEIROP Procedure Category Date Status Time Pantoprazole PHA 07/07/25 In Process (Protonix) 10:00 Stool Occult Blood LAB 07/06/25 Logged 16:25 Docusate Sodium PHA 07/06/25 In Process Capsule (Colace 22:00 Ceftriaxone 1gm/50ml PHA 07/07/25 In Process (Rocephin) 09:00 Admit ADMIT 07/06/25 Transmitted 16:25 Hydrocodone-Acet PHA 07/06/25 In Process 5/325mg Tab ([place] 16:30 Ondansetron Hcl PHA 07/06/25 In Process (Zofran) 16:30 Complete Blood Count LAB 07/07/25 Verified 04:00 Comprehensive LAB 07/07/25 Verified Metabolic Panel 04:00 Condition: Stable MICHELL 07/06/25 In Process 16:25 Acetaminophen Tablet PHA 07/06/25 In Process (Tylenol Tablet) 16:30 Clear Liq Diet DIET 07/06/25 Transmitted Dinner Bedrest With Bathroom MICHELL 07/06/25 In Process Privileg 16:25 Morphine Sulfate PHA 07/06/25 In Process Injection 16:45 * Gi Dvh Propeller Tester CONS 07/06/25 Transmitted 18:22 Date of Service: Jul 06, 2025 Billing Provider: GLEN RIBEIRO Common Visit Codes: [id number] INP/OBS CARE (MOD) GLEN RIBEIRO Jul 06, 2025 19:00
[2025-07-06 21:00] VITALS: BP 119/68; PULSE 86; RESP 20; TEMP 97.4; O2SAT 98
[2025-07-06] MEDS: DOCUSATE SOD 100 MG CAP PO SCH (22:31)
[2025-07-06] MEDS: FLEET ENEMA(ADULT) 135 ML PR ONE (22:35)
[2025-07-06] MEDS: MORPHINE SULFATE 4 MG/ML SYR/VIAL IV PRN (22:35)
[2025-07-07] VITALS (8 sets, daily range): BP systolic 126–150; BP diastolic 82–98; PULSE 67–87; RESP 16–19; TEMP 97.4–97.9; O2SAT 96–100
[2025-07-07 06:55] LABS: Hematocrit 42.1 % (36.0-46.0); Hemoglobin 14.3 g/dL (12.2-16.2); Mean Corpuscular Hemoglobin 28.5 pg (28.0-32.0); Mean Corpuscular Volume 83.8 fL (80.0-100.0); Nucleated Red Blood Cells % 0.1 %
[2025-07-07 07:17] LABS: Anion Gap 12 (5-15); BUN/Creatinine Ratio 11.6 (10.0-20.0); Blood Urea Nitrogen 10 mg/dL (9-23); Calcium 9.2 mg/dL (8.7-10.4); Carbon Dioxide 30 mmol/L (20-31); Chloride 100 mmol/L (98-107); Potassium 4.1 mmol/L (3.5-5.1); Sodium 142 mmol/L (136-145); Total Protein 7.1 g/dL (5.7-8.2)
[2025-07-07 07:18] LABS: Albumin 4.1 g/dL (3.2-4.8); Bilirubin, Total 0.6 mg/dL (0.2-1.0)
[2025-07-07 07:20] LABS: Alanine Aminotransferase 91 U/L (7-40); Alkaline Phosphatase 127 U/L (46-116); Glucose 200 mg/dL (74-106)
[2025-07-07] MEDS: PANTOPRAZOLE 40 MG/10 ML VIAL INJ IV SCH (08:29)
[2025-07-07 11:26] LABS: Urine Protein, UAD Negative (Negative)
[2025-07-07] MEDS: POLYETHYLENE GLYCOL 17 GM PWDR PO ONE (11:32)
--- NOTE | 2025-07-07 11:56 | DVHINCON2 ---
GI Consult Consult Note GI consult note Date of Consultation: 07/07/2025 Chief Complaint: Abdominal pain Referring Physician: Rene LEE H&P: 50-year-old Slovenian-speaking patient admitted with abdominal pain, Koki VELARDE translating at bedside. Patient admits to diffuse abdominal pain worsening over the last two weeks. Last bowel movement two weeks ago. Usually patient has regular bowel movements about twice a day. Denies melena or red blood in stool. Patient has nausea, one episode of small vomitus with slight streaks of blood. No vomiting at this time. No colonoscopy in past. Status post cholecystectomy. Patient has history of fatty liver that she has been diagnosed in the past. Patient had history of alcohol use but she has stopped about two years ago Patient also complains of dysuria Past Medical History: Asthma Past Surgical History: Cholecystectomy Social History: NO smoking, drinking ETOH and use of illegal drugs. Family History: Noncontributory Review of Systems: Constitutional: no fever, chill, weight loss HEENT: no eye pain, no hearing loss, no oral lesion, no scleral icterus Heart: no chest pain, no chest pressure Lung: no cough, no dyspnea with exertion Abdomen: see HPI Physical exam: General: NAD, AAOX3 Chest: lung bhatia clear to auscultation Heart: RRR, no murmur Abdomen: Moderate-distended, mild generalized tenderness to palpation, +BS Labs: Labs Test 07/07/25 11:10 07/07/25 04:41 07/06/25 13:16 Range/Units Urine Color Colorless Yellow Urine Clarity Clear Clear Urine pH 5.5 5.0-9.0 Urine Specific [place] 1.004 1.001-1.035 Urine Protein Negative Negative Urine Ketones Negative Negative Urine Blood Negative Negative /uL Urine Nitrite Negative Negative Urine Bilirubin Negative Negative Urine Urobilinogen Normal Negative mg/dL Urine Leukocyte Esterase Negative Negative /uL Urine RBC <1 0 - 4 /hpf Urine Microscopic WBC < 1 0-5 /HPF Urine Squamous Epithelial Cells Few <5 /hpf Urine Bacteria None seen None Seen /hpf Urine Glucose 4+ H Normal mg/dL White Blood Count 6.8 4.4-10.8 10^3/uL Red Blood Count 5.02 4.0-5.20 10^6/uL Hemoglobin 14.3 12.2-16.2 g/dL Hematocrit 42.1 36.0-46.0 % Mean Corpuscular Volume 83.8 80.0-100.0 fL Mean Corpuscular Hemoglobin 28.5 28.0-32.0 pg Mean Corpuscular Hemoglobin Concent 34.0 32.0-36.0 g/dL Red Cell Distribution Width 13.6 11.8-14.3 % Platelet Count 297 140-450 10^3/uL Mean Platelet Volume 8.7 6.9-10.8 fL Neutrophils (%) (Auto) 55.4 37.0-80.0 % Lymphocytes (%) (Auto) 33.7 10.0-50.0 % Monocytes (%) (Auto) 7.1 0.0-12.0 % Eosinophils (%) (Auto) 3.4 0.0-7.0 % Basophils (%) (Auto) 0.4 0.0-2.0 % Neutrophils # (Auto) 3.7 1.6-8.6 10 ^3/uL Lymphocytes # (Auto) 2.3 0.4-5.4 10 ^3/uL Monocytes # (Auto) 0.5 0-1.3 10 ^3/uL Eosinophils # (Auto) 0.2 0-0.8 10 ^3/uL Basophils # (Auto) 0 0-0.2 10 ^3/uL Nucleated Red Blood Cells 0.1 % Sodium Level 142 136-145 mmol/L Potassium Level 4.1 3.5-5.1 mmol/L Chloride Level 100 98-107 mmol/L Carbon Dioxide Level 30 20-31 mmol/L Anion Gap 12 5-15 Blood Urea Nitrogen 10 9-23 mg/dL Creatinine 0.86 0.550-1.02 mg/dL Glomerular Filtration Rate Calc 83 >90 mL/min BUN/Creatinine Ratio 11.6 10.0-20.0 Serum Glucose 200 H 74-106 mg/dL Hemoglobin A1c 8.8 H <5.7 % A1C Calcium Level 9.2 8.7-10.4 mg/dL Total Bilirubin 0.6 0.2-1.0 mg/dL Aspartate Amino Transferase (AST) 44 H 13-40 U/L Alanine Aminotransferase (ALT) 91 H 7-40 U/L Alkaline Phosphatase 127 H 46-116 U/L Total Protein 7.1 5.7-8.2 g/dL Albumin 4.1 3.2-4.8 g/dL Thyroid Stimulating Hormone (TSH) 2.22 0.55-4.78 uIU/mL Lipase 51 12-53 U/L Imaging: CT abdomen pelvis IMPRESSION: 1. Punctate left renal calculi. No hydronephrosis. 2. Hepatic steatosis. 3. A couple pulmonary nodules in the left lower lobe measuring up to 4mm. If the patient is high risk for lung cancer, consider follow-up chest CT in 12 months Assessment: Abdominal pain Constipation UTI Left renal calculi Hepatic steatosis Plan: Discussed with Dr. Durga Emmanuel's enema. MiraLax NPO and NG-tube recommended based on KUB findings Hepatitis panel, GUZMAN, for elevated LFTs Please contact Dr. sandra fernandez over the weekend for any further GI recommendations and interventions as needed Discussed plan with patient and RN Thank you for this consult Date of Service: Jul 07, 2025 Billing Provider: JANET WALKER Common Visit Codes: CONSULT ONLY Consultation Codes: [id number] CONSULT <60MIN JANET WALKER Jul 07, 2025 11:56
[2025-07-07] MEDS: FLEET ENEMA(ADULT) 135 ML PR ONE (11:58)
[2025-07-07] MEDS: KETOROLAC TROMETH 30 MG/ML 1ML VIAL IV ONE (11:58)
--- NOTE | 2025-07-07 13:15 | DVH ---
Date: 07/07/2025 12:18 PM Examination: XY KUB ABDOMEN SINGLE VIEW History: constipation, abd distension COMPARISON: None TECHNIQUE: Frontal views of the abdomen was obtained. FINDINGS: Bowel gas pattern is unremarkable. The lung bases are unremarkable. No acute osseous abnormality identified. IMPRESSION: 1. Nonobstructive bowel gas pattern.
[2025-07-07 13:18] LABS: Hepatitis A Total Antibody Positive (Negative); Hepatitis B Surface Antigen Negative (Negative); Hepatitis C Antibody Negative (Negative)
--- NOTE | 2025-07-07 15:11 | DVHPNRES ---
Progress Note Date Seen: Jul 07, 2025 Resident Creating Document: WANDA ELLISON RESIDENT Medical Necessity Reason Pt with a Central, PICC or Fol: No Subjective Review of Systems Ms. Aguirre is a 50-year-old female with prior medical history of anxiety, hiatal hernia, congenital cardiac septal defect s/p repair,who presented to [facility] with chief complaint of abdominal pain. Patient states she has had left-sided abdominal pain for approximately 1 week described as sharp, constant, nonradiating, 10/10 intensity, associated with constipation, bloating sensation, and changes in urine. She denies nausea, vomiting, diarrhea, fever, loss of appetite, generalized weakness, malaise, and palpitations. Due to persistence of symptoms, the patient presented to [facility] Emergency Department for evaluation. On evaluation in the ED, the patient was afebrile, normal cardiac, hypertensive, saturating adequately on room air. Initial labs are significant for hyperglycemia, transaminitis, and UA significant for UTI. CT abdomen/pelvis is significant for punctate left renal calculi, no hydronephrosis and hepatic steatosis. Started on IV antibiotics, pain regimen, GI was consulted, and the patient was admitted for further workup and monitoring. Prior surgical history: repair of cardiac septal defect, cholecystectomy Allergies: Denied Social: Denies drug, alcohol, and tobacco use. Lives with son and her sister and states she feels safe. 07/07/2025: Patient seen at bedside. Per nurse, no over night events to report. She is afebrile, normocardiac, normotensive, saturating adequately on room air. Follow up labs show downtrending LFTs, A1c is 8.8. She is pending evaluation of GI. Review of Systems: Constitutional: Denies weight loss, fever and chills. HEENT: Denies changes in vision and hearing. Respiratory: Denies shortness of breath and cough Cardiovascular: Denies chest discomfort or palpitations GI: Refers abdominal bloating and mild pain, refers flank pain : refers strong smelling urine Musculoskeletal: denies Skin: Denies rash and pruritus. Neurological: denies dizziness headache vision or hearing problems Objective vital signs Vital Sign Date Time Temp Pulse Resp B/P (MAP) Pulse Ox O2 Delivery O2 Flow Rate FiO2 07/07/25 13:00 97.8 78 19 147/96 (113) 99 97.8 07/07/25 08:11 Room Air* 0 21 Total Intake and Output 07/06/25 07/06/25 07/07/25 15:00 23:00 07:00 Intake Total 1000 ml 200 ml Balance 1000 ml 200 ml medications Current Medications Medications Dose Ordered Sig/Brandy Route Start Time Stop Time Status Last Admin Dose Admin Pantoprazole Sodium 40 mg DAILY IV 07/07/25 10:00 07/07/25 08:29 40 MG Ceftriaxone Sodium 50 ml @ 100 mls/hr DAILY@09 IV 07/07/25 09:00 07/07/25 08:29 100 MLS/HR Ondansetron HCl 4 mg Q4HP PRN IV 07/06/25 16:30 Acetaminophen 650 mg Q6HP PRN PO 07/06/25 16:30 Hold Morphine Sulfate 2 mg Q8HPRN PRN IV 07/06/25 16:30 UNV Polyethylene Glycol 17 gm DAILYPRN PRN PO 07/07/25 11:15 Insulin Glargine 15 units HS SC 07/07/25 22:00 Insulin Human Lispro 3 units AC SC 07/07/25 17:00 Ketorolac Tromethamine 15 mg Q6HPRN PRN IV 07/07/25 11:45 07/12/25 11:44 Examination General: The patient alert and oriented in person place and time. Patient following commands HEENT: Normocephalic, atraumatic, normal reactive pupils, EOM intact, pink conjunctiva, pink moist mucous membrane Respiratory/pulmonary: Bilateral chest expansion, no pain on palpation of chest wall, clear lungs bilaterally, vesicular murmurs present in almost all lung bhatia, no associated crackles or wheezes. Cardiovascular: Normal RRR, normal S1 and S2, no murmurs Abdomen: Abdomen nondistended, normal bowel sounds, soft, tympanic to percussion, pain to palpation of left lower quadrant, mild left CVA tenderness, no palpable masses. Extremities: No deformities, there is no peripheral edema present at the lower extremities, normal pulses Skin: No rashes or pruritus, there is no sacral edema present at this time. Neurological: Intact cranial nerves with no focal neurologic deficits laboratory and microbiology Laboratory Tests 07/07/25 04:41 Test 07/07/25 04:41 Range/Units Serum Glucose 200 H 74-106 mg/dL Problem List/Assessment/Plan Problem List/Assessment/Plan Assessment and Plan Acute abdominal pain secondary to ureterolithiasis Acute Complicated UTI - NS 70 cc hour - ceftriaxone 1 g IV daily - Toradol 15 mg IV q.6 hours PRN Constipation - MiraLAX 17 gm PO PRN - KUB: Non obstructive bowel gas pattern - Fleet enema Transaminitis possibly associated to hepatosteatosis - Hepatic panel ordered - GUZMAN ordered New onset type 2 diabetes mellitus, HB A1c - Lantus 15 units subcutaneous HS - Lispro 3 units before each meal - Accu-Cheks Hiatal hernia - Protonix 40 mg IV daily Morbid obesity, BMI 36.1 kg/m2 Nutrition: Clear liquid diet DVT prophylaxis: Patient is ambulatory GI prophylaxis: Protonix 40 mg IV daily Goals of care discussed with the patient and her son at bedside for over 37 minutes. FULL CODE. Case discussed with Dr. Bowen Plan discussed with: Patient, Son, Other (nurse) My Orders My Orders Orders - WANDA ELLISON Procedure Category Date Status Time Polyethylene Glycol PHA 07/07/25 In Process 17g Powder (Miralax 11:15 NS PHA 07/07/25 Transmitted 15:15 Visit Coding STANDARD RES Billing Provider: NELLY BOWEN MD Date of Service if different f: Jul 07, 2025 Common Visit Codes: [id number] INP/OBS CARE(HIGH) WANDA ELLISON RESIDENT Jul 07, 2025 15:11 NELLY BOWEN MD Jul 17, 2025 10:23
[2025-07-07] MEDS: SODIUM CHLORIDE 0.9% 1,000 ML IV SCH (15:58)
[2025-07-07] MEDS: INSULIN LISPRO (HUMAN) 100 UNITS/ML ML SC SCH (17:00)
[2025-07-07] MEDS: INSULIN LANTUS (GLARGINE) 1 /0.01ml (100units/ml) SC SCH (21:20)
[2025-07-08 01:00] VITALS: BP 153/86; PULSE 65; RESP 18; TEMP 97.1; O2SAT 100
[2025-07-08] MEDS: KETOROLAC TROMETH 30 MG/ML 1ML VIAL IV PRN (03:35)
[2025-07-08 05:00] VITALS: BP 128/81; PULSE 80; RESP 18; TEMP 97.2; O2SAT 98
[2025-07-08 06:39] LABS: Hematocrit 43.0 % (36.0-46.0); Hemoglobin 14.5 g/dL (12.2-16.2); Mean Corpuscular Hemoglobin 28.0 pg (28.0-32.0); Mean Corpuscular Volume 83.2 fL (80.0-100.0); Nucleated Red Blood Cells % 0.1 %
[2025-07-08 06:58] LABS: Albumin 4.1 g/dL (3.2-4.8); Anion Gap 11 (5-15); BUN/Creatinine Ratio 8.8 (10.0-20.0); Bilirubin, Total 0.6 mg/dL (0.2-1.0); Calcium 9.2 mg/dL (8.7-10.4); Carbon Dioxide 30 mmol/L (20-31); Chloride 101 mmol/L (98-107); Potassium 3.7 mmol/L (3.5-5.1); Sodium 142 mmol/L (136-145); Total Protein 7.1 g/dL (5.7-8.2)
[2025-07-08 06:59] LABS: Alanine Aminotransferase 87 U/L (7-40); Alkaline Phosphatase 124 U/L (46-116); Blood Urea Nitrogen 6 mg/dL (9-23); Glucose 193 mg/dL (74-106)
[2025-07-08 09:00] VITALS: BP 124/82; PULSE 79; RESP 18; TEMP 98.2; O2SAT 98
[2025-07-08 12:51] VITALS: BP 140/84; PULSE 69; RESP 18; TEMP 98.2; O2SAT 99
--- NOTE | 2025-07-08 14:51 | PRN ---
Misceleneous Note Note Note July 08, 2025 Subjective: No significant changes. Patient is passing gas occasionally, no significant bowel movements Vital Signs Date Time Temp Pulse Resp B/P (MAP) Pulse Ox O2 Delivery O2 Flow Rate FiO2 07/08/25 12:51 98.2 69 18 140/84 (102) 99 98.2 07/08/25 08:00 Room Air* 0 21 Current Medications Medications (Trade) Dose Ordered Sig/Brandy Route Start Time Stop Time Status Last Admin Dose Admin Pantoprazole Sodium (Protonix) 40 mg DAILY IV 07/07/25 10:00 07/08/25 09:44 40 MG Ceftriaxone Sodium 50 ml @ 100 mls/hr DAILY@09 IV 07/07/25 09:00 07/08/25 09:44 100 MLS/HR Ondansetron HCl (Zofran) 4 mg Q4HP PRN IV 07/06/25 16:30 Acetaminophen (Tylenol Tablet) 650 mg Q6HP PRN PO 07/06/25 16:30 Hold Morphine Sulfate 2 mg Q8HPRN PRN IV 07/06/25 16:30 UNV Polyethylene Glycol (Miralax 17GM Powder) 17 gm DAILYPRN PRN PO 07/07/25 11:15 Insulin Glargine (Lantus) 15 units HS SC 07/07/25 22:00 07/07/25 21:20 15 UNITS Insulin Human Lispro (HumaLOG) 3 units AC SC 07/07/25 17:00 07/08/25 12:09 3 UNITS Ketorolac Tromethamine (Toradol Injection) 15 mg Q6HPRN PRN IV 07/07/25 11:45 07/12/25 11:44 07/08/25 11:27 15 MG Sodium Chloride 1,000 ml @ 70 mls/hr [id number] IV 07/07/25 15:15 07/08/25 04:43 70 MLS/HR General Alert and oriented x4 No distress Regular rate and rhythm Soft distended, hypoactive bowel sounds, mild tenderness to palpation No clubbing cyanosis or edema Labs Test 07/08/25 12:06 07/08/25 05:20 07/07/25 13:04 07/07/25 11:10 Range/Units POC Glucose 177 H 70-106 mg/dl White Blood Count 6.1 4.4-10.8 10^3/uL Red Blood Count 5.17 4.0-5.20 10^6/uL Hemoglobin 14.5 12.2-16.2 g/dL Hematocrit 43.0 36.0-46.0 % Mean Corpuscular Volume 83.2 80.0-100.0 fL Mean Corpuscular Hemoglobin 28.0 28.0-32.0 pg Mean Corpuscular Hemoglobin Concent 33.7 32.0-36.0 g/dL Red Cell Distribution Width 13.3 11.8-14.3 % Platelet Count 292 140-450 10^3/uL Mean Platelet Volume 8.3 6.9-10.8 fL Neutrophils (%) (Auto) 55.2 37.0-80.0 % Lymphocytes (%) (Auto) 33.2 10.0-50.0 % Monocytes (%) (Auto) 7.9 0.0-12.0 % Eosinophils (%) (Auto) 3.4 0.0-7.0 % Basophils (%) (Auto) 0.3 0.0-2.0 % Neutrophils # (Auto) 3.4 1.6-8.6 10 ^3/uL Lymphocytes # (Auto) 2.0 0.4-5.4 10 ^3/uL Monocytes # (Auto) 0.5 0-1.3 10 ^3/uL Eosinophils # (Auto) 0.2 0-0.8 10 ^3/uL Basophils # (Auto) 0 0-0.2 10 ^3/uL Nucleated Red Blood Cells 0.1 % Sodium Level 142 136-145 mmol/L Potassium Level 3.7 3.5-5.1 mmol/L Chloride Level 101 98-107 mmol/L Carbon Dioxide Level 30 20-31 mmol/L Anion Gap 11 5-15 Blood Urea Nitrogen 6 L 9-23 mg/dL Creatinine 0.68 0.550-1.02 mg/dL Glomerular Filtration Rate Calc 107 >90 mL/min BUN/Creatinine Ratio 8.8 L 10.0-20.0 Serum Glucose 193 H 74-106 mg/dL Calcium Level 9.2 8.7-10.4 mg/dL Total Bilirubin 0.6 0.2-1.0 mg/dL Aspartate Amino Transferase (AST) 44 H 13-40 U/L Alanine Aminotransferase (ALT) 87 H 7-40 U/L Alkaline Phosphatase 124 H 46-116 U/L Total Protein 7.1 5.7-8.2 g/dL Albumin 4.1 3.2-4.8 g/dL Anti-Nuclear Antibody Screen Negative Negative Urine Color Colorless Yellow Urine Clarity Clear Clear Urine pH 5.5 5.0-9.0 Urine Specific [place] 1.004 1.001-1.035 Urine Protein Negative Negative Urine Ketones Negative Negative Urine Blood Negative Negative /uL Urine Nitrite Negative Negative Urine Bilirubin Negative Negative Urine Urobilinogen Normal Negative mg/dL Urine Leukocyte Esterase Negative Negative /uL Urine RBC <1 0 - 4 /hpf Urine Microscopic WBC < 1 0-5 /HPF Urine Squamous Epithelial Cells Few <5 /hpf Urine Bacteria None seen None Seen /hpf Urine Glucose 4+ H Normal mg/dL Test 07/07/25 04:41 07/06/25 13:16 Range/Units Hemoglobin A1c 8.8 H <5.7 % A1C Thyroid Stimulating Hormone (TSH) 2.22 0.55-4.78 uIU/mL Hepatitis A Antibody Total Positive H Negative Hepatitis B Surface Antigen Negative Negative Hepatitis B Surface Antibody Negative Negative Hepatitis B Core Total Antibody Negative Negative Hepatitis C Antibody Negative Negative Lipase 51 12-53 U/L Microbiology Date/Time Source Procedure Growth Status 07/07/25 11:10 Voided Urine Urine Culture - Preliminary No growth Resulted Impression: Constipation Abdominal pain Abdominal distention Recommendation: 1. Soapsuds enemas 2. If no improvement we will scheduled for flexible sigmoidoscopy or colonoscopy 3. Diet as tolerated 4. Continue with the MiraLax CECILY LIU MD Jul 08, 2025 14:51
--- NOTE | 2025-07-08 15:38 | DVHPNRES ---
Progress Note Date Seen: Jul 08, 2025 Resident Creating Document: WANDA ELLISON RESIDENT Medical Necessity Reason Pt with a Central, PICC or Fol: No Subjective Review of Systems Ms. Aguirre is a 50-year-old female with prior medical history of anxiety, hiatal hernia, congenital cardiac septal defect s/p repair,who presented to [facility] with chief complaint of abdominal pain. Patient states she has had left-sided abdominal pain for approximately 1 week described as sharp, constant, nonradiating, 10/10 intensity, associated with constipation, bloating sensation, and changes in urine. She denies nausea, vomiting, diarrhea, fever, loss of appetite, generalized weakness, malaise, and palpitations. Due to persistence of symptoms, the patient presented to [facility] Emergency Department for evaluation. On evaluation in the ED, the patient was afebrile, normal cardiac, hypertensive, saturating adequately on room air. Initial labs are significant for hyperglycemia, transaminitis, and UA significant for UTI. CT abdomen/pelvis is significant for punctate left renal calculi, no hydronephrosis and hepatic steatosis. Started on IV antibiotics, pain regimen, GI was consulted, and the patient was admitted for further workup and monitoring. Prior surgical history: repair of cardiac septal defect, cholecystectomy Allergies: Denied Social: Denies drug, alcohol, and tobacco use. Lives with son and her sister and states she feels safe. 07/08/2025: Patient seen at bedside. Per nurse, no over night events to report. No bowel movements at this time. She has been evaluated by GI, who recommended fleet enema and MiraLAX, without significant result. GI recommended soap isela enemas, if no bowel movements result she will be scheduled for flexible sigmoidoscopy or colonoscopy. Objective vital signs Vital Sign Date Time Temp Pulse Resp B/P (MAP) Pulse Ox O2 Delivery O2 Flow Rate FiO2 07/08/25 12:51 98.2 69 18 140/84 (102) 99 98.2 07/08/25 08:00 Room Air* 0 21 Total Intake and Output 07/07/25 07/07/25 07/08/25 15:00 23:00 07:00 Intake Total 800 ml 240 ml Balance 800 ml 240 ml medications Current Medications Medications Dose Ordered Sig/Brandy Route Start Time Stop Time Status Last Admin Dose Admin Pantoprazole Sodium 40 mg DAILY IV 07/07/25 10:00 07/08/25 09:44 40 MG Ceftriaxone Sodium 50 ml @ 100 mls/hr DAILY@09 IV 07/07/25 09:00 07/08/25 09:44 100 MLS/HR Ondansetron HCl 4 mg Q4HP PRN IV 07/06/25 16:30 Acetaminophen 650 mg Q6HP PRN PO 07/06/25 16:30 Hold Morphine Sulfate 2 mg Q8HPRN PRN IV 07/06/25 16:30 UNV Polyethylene Glycol 17 gm DAILYPRN PRN PO 07/07/25 11:15 Insulin Glargine 15 units HS SC 07/07/25 22:00 07/07/25 21:20 15 UNITS Insulin Human Lispro 3 units AC SC 07/07/25 17:00 07/08/25 12:09 3 UNITS Ketorolac Tromethamine 15 mg Q6HPRN PRN IV 07/07/25 11:45 07/12/25 11:44 07/08/25 11:27 15 MG Sodium Chloride 1,000 ml @ 70 mls/hr [id number] IV 07/07/25 15:15 07/08/25 04:43 70 MLS/HR Examination General: The patient alert and oriented in person place and time. Patient following commands HEENT: Normocephalic, atraumatic, normal reactive pupils, EOM intact, pink conjunctiva, pink moist mucous membrane Respiratory/pulmonary: Bilateral chest expansion, no pain on palpation of chest wall, clear lungs bilaterally, vesicular murmurs present in almost all lung bhatia, no associated crackles or wheezes. Cardiovascular: Normal RRR, normal S1 and S2, no murmurs Abdomen: Abdomen nondistended, normal bowel sounds, soft, tympanic to percussion, pain to palpation of left lower quadrant, mild left CVA tenderness, no palpable masses. Extremities: No deformities, there is no peripheral edema present at the lower extremities, normal pulses Skin: No rashes or pruritus, there is no sacral edema present at this time. Neurological: Intact cranial nerves with no focal neurologic deficits laboratory and microbiology Laboratory Tests 07/08/25 05:20 Test 07/08/25 05:20 Range/Units Serum Glucose 193 H 74-106 mg/dL Microbiology Date/Time Source Procedure Growth Status 07/07/25 11:10 Voided Urine Urine Culture - Preliminary No growth Resulted Problem List/Assessment/Plan Problem List/Assessment/Plan Assessment and Plan Acute abdominal pain secondary to ureterolithiasis Acute Complicated UTI - NS 70 cc hour - ceftriaxone 1 g IV daily - Toradol 15 mg IV q.6 hours PRN Constipation - MiraLAX 17 gm PO PRN - KUB: Non obstructive bowel gas pattern - Fleet enema - Soap isela enemas - Per GI: If no bowel movement is produced after soap isela enemas, she will be scheduled for flexible sigmoidoscopy or colonoscopy. Transaminitis possibly associated to hepatosteatosis - Hepatic panel ordered - GUZMAN ordered New onset type 2 diabetes mellitus, HB A1c - Lantus 15 units subcutaneous HS - Lispro 3 units before each meal - Accu-Cheks Hiatal hernia - Protonix 40 mg IV daily Morbid obesity, BMI 36.1 kg/m2 Nutrition: Clear liquid diet DVT prophylaxis: Patient is ambulatory GI prophylaxis: Protonix 40 mg IV daily Goals of care discussed with the patient for 25 minutes. FULL CODE. Case discussed with Dr. Garcia Plan discussed with: Patient, Other (Nurse (Nan)) My Orders My Orders Orders - WANDA ELLISON RESIDENT Procedure Category Date Status Time Stool Bacterial CAREY 07/07/25 Logged Culture 16:35 Soap Isela Enema ORDERS 07/08/25 Transmitted 12:22 Visit Coding STANDARD RES Billing Provider: PEGGY GARCIA DO Date of Service if different f: Jul 08, 2025 Common Visit Codes: [id number] INP/OBS CARE(MOD) WANDA ELLISON RESIDENT Jul 08, 2025 15:38 PEGGY GARCIA DO Jul 18, 2025 11:56
[2025-07-08 17:00] VITALS: BP 140/73; PULSE 54; RESP 18; TEMP 98.1; O2SAT 95
[2025-07-08 20:36] VITALS: BP 134/66; PULSE 74; RESP 17; O2SAT 97
[2025-07-09 01:00] VITALS: BP 170/86; PULSE 73; RESP 18; O2SAT 100
[2025-07-09 05:00] VITALS: BP 135/77; PULSE 75; RESP 16; O2SAT 97
[2025-07-09 06:40] LABS: Albumin 4.0 g/dL (3.2-4.8); BUN/Creatinine Ratio 8.2 (10.0-20.0); Bilirubin, Total 0.7 mg/dL (0.2-1.0); Calcium 9.1 mg/dL (8.7-10.4); Chloride 104 mmol/L (98-107); Sodium 141 mmol/L (136-145); Total Protein 7.1 g/dL (5.7-8.2)
[2025-07-09 06:41] LABS: Anion Gap 10 (5-15); Carbon Dioxide 27 mmol/L (20-31)
[2025-07-09 06:43] LABS: Alanine Aminotransferase 87 U/L (7-40); Alkaline Phosphatase 123 U/L (46-116); Blood Urea Nitrogen 5 mg/dL (9-23); Glucose 169 mg/dL (74-106); Potassium 3.4 mmol/L (3.5-5.1)
[2025-07-09 09:00] VITALS: BP 146/82; PULSE 72; RESP 18; TEMP 98.1; O2SAT 98
[2025-07-09] MEDS: POTASSIUM EFFERVESENT TAB 25 MEQ PO ONE (10:16)
[2025-07-09 12:40] VITALS: BP 146/95; PULSE 70; RESP 16; TEMP 98.1; O2SAT 99
--- NOTE | 2025-07-09 12:54 | PRN ---
Misceleneous Note Note Note July 09, 2025 Subjective: Patient had bowel movement with soapsuds enema Vital Signs Date Time Temp Pulse Resp B/P (MAP) Pulse Ox O2 Delivery O2 Flow Rate FiO2 07/09/25 12:40 98.1 70 16 146/95 (112) 99 98.1 07/09/25 08:00 Room Air* 0 21 General: Alert and oriented Regular rate and rhythm Soft nontender nondistended No clubbing cyanosis or edema Labs Test 07/09/25 11:32 07/09/25 05:23 07/08/25 05:20 07/07/25 13:04 Range/Units POC Glucose 152 H 70-106 mg/dl Sodium Level 141 136-145 mmol/L Potassium Level 3.4 L 3.5-5.1 mmol/L Chloride Level 104 98-107 mmol/L Carbon Dioxide Level 27 20-31 mmol/L Anion Gap 10 5-15 Blood Urea Nitrogen 5 L 9-23 mg/dL Creatinine 0.61 0.550-1.02 mg/dL Glomerular Filtration Rate Calc 110 >90 mL/min BUN/Creatinine Ratio 8.2 L 10.0-20.0 Serum Glucose 169 H 74-106 mg/dL Calcium Level 9.1 8.7-10.4 mg/dL Total Bilirubin 0.7 0.2-1.0 mg/dL Aspartate Amino Transferase (AST) 62 H 13-40 U/L Alanine Aminotransferase (ALT) 87 H 7-40 U/L Alkaline Phosphatase 123 H 46-116 U/L Total Protein 7.1 5.7-8.2 g/dL Albumin 4.0 3.2-4.8 g/dL White Blood Count 6.1 4.4-10.8 10^3/uL Red Blood Count 5.17 4.0-5.20 10^6/uL Hemoglobin 14.5 12.2-16.2 g/dL Hematocrit 43.0 36.0-46.0 % Mean Corpuscular Volume 83.2 80.0-100.0 fL Mean Corpuscular Hemoglobin 28.0 28.0-32.0 pg Mean Corpuscular Hemoglobin Concent 33.7 32.0-36.0 g/dL Red Cell Distribution Width 13.3 11.8-14.3 % Platelet Count 292 140-450 10^3/uL Mean Platelet Volume 8.3 6.9-10.8 fL Neutrophils (%) (Auto) 55.2 37.0-80.0 % Lymphocytes (%) (Auto) 33.2 10.0-50.0 % Monocytes (%) (Auto) 7.9 0.0-12.0 % Eosinophils (%) (Auto) 3.4 0.0-7.0 % Basophils (%) (Auto) 0.3 0.0-2.0 % Neutrophils # (Auto) 3.4 1.6-8.6 10 ^3/uL Lymphocytes # (Auto) 2.0 0.4-5.4 10 ^3/uL Monocytes # (Auto) 0.5 0-1.3 10 ^3/uL Eosinophils # (Auto) 0.2 0-0.8 10 ^3/uL Basophils # (Auto) 0 0-0.2 10 ^3/uL Nucleated Red Blood Cells 0.1 % Anti-Nuclear Antibody Screen Negative Negative Test 07/07/25 11:10 07/07/25 04:41 07/06/25 13:16 Range/Units Urine Color Colorless Yellow Urine Clarity Clear Clear Urine pH 5.5 5.0-9.0 Urine Specific [place] 1.004 1.001-1.035 Urine Protein Negative Negative Urine Ketones Negative Negative Urine Blood Negative Negative /uL Urine Nitrite Negative Negative Urine Bilirubin Negative Negative Urine Urobilinogen Normal Negative mg/dL Urine Leukocyte Esterase Negative Negative /uL Urine RBC <1 0 - 4 /hpf Urine Microscopic WBC < 1 0-5 /HPF Urine Squamous Epithelial Cells Few <5 /hpf Urine Bacteria None seen None Seen /hpf Urine Glucose 4+ H Normal mg/dL Hemoglobin A1c 8.8 H <5.7 % A1C Thyroid Stimulating Hormone (TSH) 2.22 0.55-4.78 uIU/mL Hepatitis A Antibody Total Positive H Negative Hepatitis B Surface Antigen Negative Negative Hepatitis B Surface Antibody Negative Negative Hepatitis B Core Total Antibody Negative Negative Hepatitis C Antibody Negative Negative Lipase 51 12-53 U/L Microbiology Date/Time Source Procedure Growth Status 07/07/25 11:10 Voided Urine Urine Culture - Final Complete Impression: Constipation Patient had bowel movement with soapsuds enema although with small Recommendations: 1. Patient should receive another soapsuds enema 2. Dulcolax 10 mg p.o. x1 3. We will sign off to Dr. Calixto tomorrow CECILY LIU MD Jul 09, 2025 12:54
[2025-07-09] MEDS: BISACODYL 5 MG EC TAB PO ONE (14:00)
[2025-07-09 16:41] VITALS: BP 128/94; PULSE 71; RESP 20; TEMP 98.3; O2SAT 98
--- NOTE | 2025-07-09 18:10 | DVHPNRES ---
Progress Note Date Seen: Jul 09, 2025 Resident Creating Document: LB CHARLES RESIDENT Medical Necessity Reason Pt with a Central, PICC or Fol: No Subjective Review of Systems This is a 50-year-old female with prior medical history of Asthma, anxiety, hiatal hernia, congenital cardiac septal defect s/p repair,who presented to Hospital with chief complaint of abdominal pain. Patient states she has had left-sided abdominal pain for approximately 1 week described as sharp, constant, nonradiating, 10/10 intensity, associated with constipation, bloating sensation, and changes in urine. Due to persistent symptoms patient admitted to hospital. Patient abdominal pain associated with nausea, constipation, mild abdominal distention but no vomiting. Currently patient denies any fever, SOB, chest pain, headache, dysuria or any focal weakness. Prior surgical history: repair of cardiac septal defect, cholecystectomy Allergies: Denied Social: Denies drug, alcohol, and tobacco use. Lives with son and her sister and states she feels safe. Allergy: No known allergy PCP: Renee [facility] Home medication: Metformin, losartan, metoclopramide, diclofenac, pantoprazole, albuterol, budesonide, atorvastatin, methocarbamol, acetaminophen famotidine. Patient seen and evaluated in bedside today. Patient currently on clear liquid diet and denies any vomiting. Patient having small bowel movement after soapsuds enema. GI recommendation appreciated. Objective vital signs Vital Sign Date Time Temp Pulse Resp B/P (MAP) Pulse Ox O2 Delivery O2 Flow Rate FiO2 07/09/25 16:41 98.3 71 20 128/94 (105) 98 98.3 07/09/25 08:00 Room Air* 0 21 Total Intake and Output 07/08/25 07/08/25 07/09/25 15:00 23:00 07:00 Intake Total 700 ml 150 ml Balance 700 ml 150 ml medications Current Medications Medications Dose Ordered Sig/Brandy Route Start Time Stop Time Status Last Admin Dose Admin Pantoprazole Sodium 40 mg DAILY IV 07/07/25 10:00 07/09/25 08:14 40 MG Ceftriaxone Sodium 50 ml @ 100 mls/hr DAILY@09 IV 07/07/25 09:00 07/09/25 08:13 100 MLS/HR Ondansetron HCl 4 mg Q4HP PRN IV 07/06/25 16:30 Morphine Sulfate 2 mg Q8HPRN PRN IV 07/06/25 16:30 UNV Polyethylene Glycol 17 gm DAILYPRN PRN PO 07/07/25 11:15 Insulin Glargine 15 units HS SC 07/07/25 22:00 07/08/25 21:38 15 UNITS Insulin Human Lispro 3 units AC SC 07/07/25 17:00 07/09/25 16:58 3 UNITS Ketorolac Tromethamine 15 mg Q6HPRN PRN IV 07/07/25 11:45 07/12/25 11:44 07/08/25 21:45 15 MG Examination General: The patient alert and oriented in person place and time. Patient following commands HEENT: Normocephalic, atraumatic, normal reactive pupils, EOM intact, pink conjunctiva, pink moist mucous membrane Respiratory/pulmonary: Bilateral chest expansion, no pain on palpation of chest wall, clear lungs bilaterally, vesicular murmurs present in almost all lung bhatia. Cardiovascular: Normal RRR, normal S1 and S2, no murmurs Abdomen: Abdomen nondistended, normal bowel sounds, soft, tympanic to percussion, mild pain to palpation of left lower quadrant Extremities: No deformities, there is no peripheral edema present at the lower extremities, normal pulses Skin: No rashes or pruritus, there is no sacral edema present at this time. Neurological: Intact cranial nerves with no focal neurologic deficits laboratory and microbiology Laboratory Tests 07/09/25 05:23 07/08/25 05:20 Test 07/09/25 05:23 Range/Units Serum Glucose 169 H 74-106 mg/dL Microbiology Date/Time Source Procedure Growth Status 07/07/25 11:10 Voided Urine Urine Culture - Final Complete Problem List/Assessment/Plan Problem List/Assessment/Plan Acute abdominal pain secondary to ureterolithiasis Acute Complicated UTI - NS 70 cc hour - ceftriaxone 1 g IV daily - Toradol 15 mg IV q.6 hours PRN Chronic Constipation X-ray abdomen showed nonobstructive bowel gas pattern. - MiraLAX 17 gm PO PRN - KUB: Non obstructive bowel gas pattern - s/p Fleet enema - Soap isela enemas x2 on 07/09/2025 -bisacodyl 10 mg p.o. - GI recs appreciated, possible pt benefited with colonoscopy/sigmoidoscopy. Hypokalemia -Supplemented -BMP Transaminitis possibly associated to hepatosteatosis - Hepatic panel: HBsAg, HCV Ab , HBcAb-Negative. - GUZMAN negative New onset type 2 diabetes mellitus, HB A1c- 8.8 - Lantus 15 units subcutaneous HS - Lispro 3 units before each meal - Accu-Cheks Hiatal hernia - Protonix 40 mg IV daily Pulmonary nodule CT shows couple of pulmonary nodule in left lower lobe measuring up to [address] one year and outpatient pulmonary follow up Morbid obesity, BMI 36.1 kg/m2 Hepatic steatosis Lifestyle modification Nutrition: Clear liquid diet DVT prophylaxis: Patient is ambulatory GI prophylaxis: Protonix 40 mg IV daily Goals of care discussed with the patient for 19 minutes. FULL CODE. Case discussed with Dr. Garcia. Plan discussed with: Patient, Other (Nurse) Visit Coding STANDARD RES Billing Provider: PEGGY GARCIA DO Date of Service if different f: Jul 09, 2025 Common Visit Codes: [id number] INP/OBS CARE(MOD) Secondary Visit Codes: [id number] CARE PLAN 30 MINUTES LB CHARLES RESIDENT Jul 09, 2025 18:10 PEGGY GARCIA DO Jul 18, 2025 11:55
[2025-07-09 21:00] VITALS: BP 131/88; PULSE 85; RESP 17; TEMP 98.6; O2SAT 97
[2025-07-10] VITALS (7 sets, daily range): BP systolic 130–149; BP diastolic 83–94; PULSE 63–80; RESP 16–20; TEMP 97.6–98.6; O2SAT 96–99
[2025-07-10 06:23] LABS: Hematocrit 44.1 % (36.0-46.0); Hemoglobin 15.1 g/dL (12.2-16.2); Mean Corpuscular Hemoglobin 28.4 pg (28.0-32.0); Mean Corpuscular Volume 82.7 fL (80.0-100.0); Nucleated Red Blood Cells % 0.1 %
[2025-07-10] MEDS: POLYETHYLENE GLYCOL 17 GM PWDR PO PRN (06:27)
[2025-07-10 06:47] LABS: Albumin 4.1 g/dL (3.2-4.8); Anion Gap 9 (5-15); BUN/Creatinine Ratio 13.7 (10.0-20.0); Bilirubin, Total 0.7 mg/dL (0.2-1.0); Blood Urea Nitrogen 10 mg/dL (9-23); Calcium 9.4 mg/dL (8.7-10.4); Carbon Dioxide 27 mmol/L (20-31); Chloride 104 mmol/L (98-107); Potassium 3.7 mmol/L (3.5-5.1); Sodium 140 mmol/L (136-145); Total Protein 7.4 g/dL (5.7-8.2)
[2025-07-10 06:48] LABS: Alanine Aminotransferase 98 U/L (7-40); Alkaline Phosphatase 127 U/L (46-116); Glucose 149 mg/dL (74-106)
--- NOTE | 2025-07-10 15:53 | DVHPNRES ---
Progress Note Date Seen: Jul 10, 2025 Resident Creating Document: WANDA ELLISON RESIDENT Medical Necessity Reason Pt with a Central, PICC or Fol: No Subjective Review of Systems Ms. Aguirre is a 50-year-old female with prior medical history of anxiety, hiatal hernia, congenital cardiac septal defect s/p repair,who presented to [facility] with chief complaint of abdominal pain. Patient states she has had left-sided abdominal pain for approximately 1 week described as sharp, constant, nonradiating, 10/10 intensity, associated with constipation, bloating sensation, and changes in urine. She denies nausea, vomiting, diarrhea, fever, loss of appetite, generalized weakness, malaise, and palpitations. Due to persistence of symptoms, the patient presented to [facility] Emergency Department for evaluation. On evaluation in the ED, the patient was afebrile, normal cardiac, hypertensive, saturating adequately on room air. Initial labs are significant for hyperglycemia, transaminitis, and UA significant for UTI. CT abdomen/pelvis is significant for punctate left renal calculi, no hydronephrosis and hepatic steatosis. Started on IV antibiotics, pain regimen, GI was consulted, and the patient was admitted for further workup and monitoring. Prior surgical history: repair of cardiac septal defect, cholecystectomy Allergies: Denied Social: Denies drug, alcohol, and tobacco use. Lives with son and her sister and states she feels safe. 07/10/2025: Patient seen at bedside. Per nurse, after 2 soap isela enemas she had 1 small bowel movemen, but no further activity since. Per the patient, she continues to have bloating after she eats. She is pending reevaluation by GI for final decision on inpatient colonoscopy. Objective vital signs Vital Sign Date Time Temp Pulse Resp B/P (MAP) Pulse Ox O2 Delivery O2 Flow Rate FiO2 07/10/25 13:00 97.9 63 18 132/94 (107) 96 97.9 07/10/25 08:00 Room Air* 0 21 Total Intake and Output 07/09/25 07/09/25 07/10/25 15:00 23:00 07:00 Intake Total 50 ml 400 ml 240 ml Balance 50 ml 400 ml 240 ml medications Current Medications Medications Dose Ordered Sig/Brandy Route Start Time Stop Time Status Last Admin Dose Admin Pantoprazole Sodium 40 mg DAILY IV 07/07/25 10:00 07/10/25 08:15 40 MG Ceftriaxone Sodium 50 ml @ 100 mls/hr DAILY@09 IV 07/07/25 09:00 07/10/25 08:06 100 MLS/HR Ondansetron HCl 4 mg Q4HP PRN IV 07/06/25 16:30 Morphine Sulfate 2 mg Q8HPRN PRN IV 07/06/25 16:30 UNV Polyethylene Glycol 17 gm DAILYPRN PRN PO 07/07/25 11:15 07/10/25 06:27 17 GM Insulin Glargine 15 units HS SC 07/07/25 22:00 07/09/25 23:18 15 UNITS Insulin Human Lispro 3 units AC SC 07/07/25 17:00 07/10/25 11:25 3 UNITS Ketorolac Tromethamine 15 mg Q6HPRN PRN IV 07/07/25 11:45 07/12/25 11:44 07/10/25 12:41 15 MG Examination General: The patient alert and oriented in person place and time. Patient following commands HEENT: Normocephalic, atraumatic, normal reactive pupils, EOM intact, pink conjunctiva, pink moist mucous membrane Respiratory/pulmonary: Bilateral chest expansion, no pain on palpation of chest wall, clear lungs bilaterally, vesicular murmurs present in almost all lung bhatia, no associated crackles or wheezes. Cardiovascular: Normal RRR, normal S1 and S2, no murmurs Abdomen: Abdomen mildly distended, normal bowel sounds, soft, tympanic to percussion, pain to palpation of left lower quadrant, mild left CVA tenderness, no palpable masses. Extremities: No deformities, there is no peripheral edema present at the lower extremities, normal pulses Skin: No rashes or pruritus, there is no sacral edema present at this time. Neurological: Intact cranial nerves with no focal neurologic deficits laboratory and microbiology Laboratory Tests 07/10/25 05:42 Test 07/10/25 05:42 Range/Units Serum Glucose 149 H 74-106 mg/dL Microbiology Date/Time Source Procedure Growth Status 07/07/25 11:10 Voided Urine Urine Culture - Final Complete Problem List/Assessment/Plan Problem List/Assessment/Plan Assessment and Plan Acute abdominal pain secondary to ureterolithiasis Acute Complicated UTI - NS 70 cc hour - ceftriaxone 1 g IV daily - Toradol 15 mg IV q.6 hours PRN Constipation - MiraLAX 17 gm PO PRN - KUB: Non obstructive bowel gas pattern - Fleet enema - Soap isela enemas - Pending reevaluation by GI for final decision on inpatient colonoscopy. Transaminitis possibly associated to hepatosteatosis - Hepatic panel ordered - GUZMAN ordered New onset type 2 diabetes mellitus, HB A1c - Lantus 15 units subcutaneous HS - Lispro 3 units before each meal - Accu-Cheks Hiatal hernia - Protonix 40 mg IV daily Morbid obesity, BMI 36.1 kg/m2 Nutrition: Clear liquid diet DVT prophylaxis: Patient is ambulatory GI prophylaxis: Protonix 40 mg IV daily Goals of care discussed with the patient for 27 minutes. FULL CODE. Case discussed with Dr. Bowen Plan discussed with: Patient, Other (nurse) Visit Coding STANDARD RES Billing Provider: NELLY BOWEN MD Date of Service if different f: Jul 10, 2025 Common Visit Codes: [id number] INP/OBS CARE(HIGH) WANDA ELLISON RESIDENT Jul 10, 2025 15:53 NELLY BOWEN MD Jul 17, 2025 10:33
--- NOTE | 2025-07-10 19:01 | DVHPN2 ---
Progress Note - Dictate Date Seen: Jul 10, 2025 Medical Necessity Reason Pt with a Central, PICC or Fol: No Subjective After 2 soap isela enemas she had 1 small bowel movemen, but no further activity since. Per the patient, she continues to have bloating after she eats. vital signs Vital Sign Date Time Temp Pulse Resp B/P (MAP) Pulse Ox O2 Delivery O2 Flow Rate FiO2 07/10/25 17:00 98.6 70 16 139/90 (106) 96 98.6 07/10/25 08:00 Room Air* 0 21 Total Intake and Output 07/09/25 07/09/25 07/10/25 15:00 23:00 07:00 Intake Total 50 ml 400 ml 240 ml Balance 50 ml 400 ml 240 ml medications Current Medications Medications Dose Ordered Sig/Brandy Route Start Time Stop Time Status Last Admin Dose Admin Pantoprazole Sodium 40 mg DAILY IV 07/07/25 10:00 07/10/25 08:15 40 MG Ceftriaxone Sodium 50 ml @ 100 mls/hr DAILY@09 IV 07/07/25 09:00 07/10/25 08:06 100 MLS/HR Ondansetron HCl 4 mg Q4HP PRN IV 07/06/25 16:30 Morphine Sulfate 2 mg Q8HPRN PRN IV 07/06/25 16:30 UNV Polyethylene Glycol 17 gm DAILYPRN PRN PO 07/07/25 11:15 07/10/25 06:27 17 GM Insulin Glargine 15 units HS SC 07/07/25 22:00 07/09/25 23:18 15 UNITS Insulin Human Lispro 3 units AC SC 07/07/25 17:00 07/10/25 11:25 3 UNITS Ketorolac Tromethamine 15 mg Q6HPRN PRN IV 07/07/25 11:45 07/12/25 11:44 07/10/25 12:41 15 MG objective General Alert and oriented x4 No distress Regular rate and rhythm Soft distended, hypoactive bowel sounds, mild tenderness to palpation No clubbing cyanosis or edema laboratory and microbiology Laboratory Tests 07/10/25 05:42 Test 07/10/25 05:42 Range/Units Serum Glucose 149 H 74-106 mg/dL Abdominal x-ray shows nonspecific bowel gas pattern CT abdomen pelvis Hepatic steatosis Pulmonary nodules Problems(with codes): (1) Constipation (2) Intractable abdominal pain (3) Abnormal finding on GI tract imaging Prognosis Plan NPO after midnight I will plan a sigmoidoscopy test for her tomorrow after one more soapsuds enema Check CEA level Plan discussed with: Other (Dr Medina) SUNITHA BALTAZAR MD Jul 10, 2025 19:01
[2025-07-11] VITALS (7 sets, daily range): BP systolic 128–154; BP diastolic 84–92; PULSE 63–92; RESP 12–20; TEMP 97.6–98.2; O2SAT 92–100
[2025-07-11 06:59] LABS: INR 0.97 (0.9-1.15); Partial Thromboplastin Time 28.2 SEC (24.5-34.5); Prothrombin Time 10.3 sec (9.3-11.8)
[2025-07-11 07:19] LABS: Carbon Dioxide 28 mmol/L (20-31)
[2025-07-11 07:20] LABS: Anion Gap 13 (5-15); Calcium 9.8 mg/dL (8.7-10.4); Chloride 101 mmol/L (98-107); Potassium 3.7 mmol/L (3.5-5.1); Sodium 142 mmol/L (136-145)
[2025-07-11 07:24] LABS: BUN/Creatinine Ratio 10.7 (10.0-20.0)
[2025-07-11 07:26] LABS: Albumin 4.7 g/dL (3.2-4.8)
[2025-07-11 07:27] LABS: Alanine Aminotransferase 145 U/L (7-40); Alkaline Phosphatase 141 U/L (46-116); Bilirubin, Total 0.8 mg/dL (0.2-1.0); Blood Urea Nitrogen 8 mg/dL (9-23); Glucose 143 mg/dL (74-106); Total Protein 8.4 g/dL (5.7-8.2)
[2025-07-11] MEDS ORDERED: MIDAZOLAM HCL 2MG/2ML 2ml VIAL (1mg/ml) ONE (14:11)
[2025-07-11] MEDS ORDERED: fentaNYL CITRATE 100 MCG/2 ML VL ONE (14:11)
[2025-07-11] MEDS ORDERED: PROPOFOL 10 MG/ML 20 ML IV ONE (14:19)
--- NOTE | 2025-07-11 14:33 | DVHOP2 ---
Operative Report DATE OF OPERATION: 07/11/25 PROCEDURE: Diagnosis Colonoscopy. PREOPERATIVE INDICATION: The patient is a 50 -year-old female undergoing colonoscopy for suspected large bowel obstruction with no bowel movement for two weeks POSTOPERATIVE DIAGNOSES: 1. Patient has evidence of residual chunks of formed stool and liquid stool present throughout the length of the colon more prominent in the right colon 2. Trace internal hemorrhoids otherwise essentially completely and grossly normal examination up to the cecum without any mass or obstruction PROCEDURE PERFORMED BY: Sunitha Calixto M.D. SCOPE: Olympus videocolonoscope. ASA CLASS: 3 PREOPERATIVE MEDICATIONS: Mac Dr.Kakkes lyndsey PROCEDURE IN DETAIL: After obtaining an informed consent, the patient was placed on left lateral decubitus position. She was then sedated with the above medications. A rectal examination was performed that was normal. The colonoscope was then passed through the anus into the rectosigmoid and through the descending, transverse, and ascending colon up to the cecum with visualization of the appendiceal orifice, base of the cecum and the ileocecal valve. The colonoscope was then withdrawn. No polyps or masses were seen. There was no colitis. There was no obstruction. Patient had evidence of residual chunks of stool and other liquid stool and debris present throughout the colon more prominent in the right colon On retroflexion and straight on view patient had trace to 1+ internal hemorrhoids The patient tolerated the procedure well without difficulty. WITHDRAWAL TIME: 6 minute QUALITY OF THE PREP: [place] Bowel Prep score: Six COMPLICATIONS : None SPECIMENS: None DISPOSITION: Transfer back to the floor Stable PLAN: 1. Resume full liquid diet advance as tolerated ; supportive care 2.Patient will be given GoLYTELY to help clean out her bowels or we can consider using magnesium citrate SUNITHA CALIXTO MD Jul 11, 2025 14:33
[2025-07-11] MEDS: GOLYTELY 4L KIT PO ONE (15:17)
--- NOTE | 2025-07-11 16:47 | DVHPNRES ---
Progress Note Date Seen: Jul 11, 2025 Resident Creating Document: WANDA ELLISON RESIDENT Medical Necessity Reason Pt with a Central, PICC or Fol: No Subjective Review of Systems Ms. Aguirre is a 50-year-old female with prior medical history of anxiety, hiatal hernia, congenital cardiac septal defect s/p repair,who presented to [facility] with chief complaint of abdominal pain. Patient states she has had left-sided abdominal pain for approximately 1 week described as sharp, constant, nonradiating, 10/10 intensity, associated with constipation, bloating sensation, and changes in urine. She denies nausea, vomiting, diarrhea, fever, loss of appetite, generalized weakness, malaise, and palpitations. Due to persistence of symptoms, the patient presented to [facility] Emergency Department for evaluation. On evaluation in the ED, the patient was afebrile, normal cardiac, hypertensive, saturating adequately on room air. Initial labs are significant for hyperglycemia, transaminitis, and UA significant for UTI. CT abdomen/pelvis is significant for punctate left renal calculi, no hydronephrosis and hepatic steatosis. Started on IV antibiotics, pain regimen, GI was consulted, and the patient was admitted for further workup and monitoring. Prior surgical history: repair of cardiac septal defect, cholecystectomy Allergies: Denied Social: Denies drug, alcohol, and tobacco use. Lives with son and her sister and states she feels safe. : Patient seen at bedside. Per nurse, patient underwent another soap isela enema, without bowel movement. LFTs are uptrending. She will undergo flexible sigmoidoscopy today with Dr. Calixto. Objective vital signs Vital Sign Date Time Temp Pulse Resp B/P (MAP) Pulse Ox O2 Delivery O2 Flow Rate FiO2 07/11/25 16:32 97.8 70 20 133/89 (104) 98 97.8 07/11/25 14:36 Mask 5.0 100 Total Intake and Output 07/10/25 07/10/25 07/11/25 15:00 23:00 07:00 Intake Total 720 ml 300 ml Balance 720 ml 300 ml medications Current Medications Medications Dose Ordered Sig/Brandy Route Start Time Stop Time Status Last Admin Dose Admin Pantoprazole Sodium 40 mg DAILY IV 07/07/25 10:00 07/11/25 08:47 40 MG Ceftriaxone Sodium 50 ml @ 100 mls/hr DAILY@09 IV 07/07/25 09:00 07/11/25 08:49 100 MLS/HR Ondansetron HCl 4 mg Q4HP PRN IV 07/06/25 16:30 Morphine Sulfate 2 mg Q8HPRN PRN IV 07/06/25 16:30 UNV Polyethylene Glycol 17 gm DAILYPRN PRN PO 07/07/25 11:15 07/10/25 06:27 17 GM Insulin Glargine 15 units HS SC 07/07/25 22:00 07/10/25 21:44 15 UNITS Insulin Human Lispro 3 units AC SC 07/07/25 17:00 07/10/25 11:25 3 UNITS Ketorolac Tromethamine 15 mg Q6HPRN PRN IV 07/07/25 11:45 07/12/25 11:44 07/11/25 05:53 15 MG Examination General: The patient alert and oriented in person place and time. Patient following commands HEENT: Normocephalic, atraumatic, normal reactive pupils, EOM intact, pink conjunctiva, pink moist mucous membrane Respiratory/pulmonary: Bilateral chest expansion, no pain on palpation of chest wall, clear lungs bilaterally, vesicular murmurs present in almost all lung bhatia, no associated crackles or wheezes. Cardiovascular: Normal RRR, normal S1 and S2, no murmurs Abdomen: Abdomen mildly distended, normal bowel sounds, soft, tympanic to percussion, pain to palpation of left lower quadrant, mild left CVA tenderness, no palpable masses. Extremities: No deformities, there is no peripheral edema present at the lower extremities, normal pulses Skin: No rashes or pruritus, there is no sacral edema present at this time. Neurological: Intact cranial nerves with no focal neurologic deficits laboratory and microbiology Laboratory Tests 07/11/25 05:24 07/10/25 05:42 Test 07/11/25 05:24 Range/Units Serum Glucose 143 H 74-106 mg/dL Microbiology Date/Time Source Procedure Growth Status 07/07/25 11:10 Voided Urine Urine Culture - Final Complete Labs and/or images reviewed: Labs reviewed by me, Image(s) reviewed by me Problem List/Assessment/Plan Problem List/Assessment/Plan Assessment and Plan Acute abdominal pain secondary to ureterolithiasis Acute Complicated UTI - NS 70 cc hour - ceftriaxone 1 g IV daily - Toradol 15 mg IV q.6 hours PRN Constipation - MiraLAX 17 gm PO PRN - KUB: Non obstructive bowel gas pattern - Fleet enema - Soap isela enemas - Per GI: Patient will undergo flexible sigmoidoscopy today. Transaminitis possibly associated to hepatosteatosis - Hepatic panel: Positive for Hep A Antibody - GUZMAN: negative New onset type 2 diabetes mellitus, HB A1c - Lantus 15 units subcutaneous HS - Lispro 3 units before each meal - Accu-Cheks Hiatal hernia - Protonix 40 mg IV daily Morbid obesity, BMI 36.1 kg/m2 Nutrition: Clear liquid diet DVT prophylaxis: Patient is ambulatory GI prophylaxis: Protonix 40 mg IV daily Goals of care discussed with the patient for 29 minutes. FULL CODE. Case discussed with Dr. Bowen Plan discussed with: Patient, Other (Nurse) Visit Coding STANDARD RES Billing Provider: NELLY BOWEN MD Date of Service if different f: Jul 11, 2025 Common Visit Codes: [id number] INP/OBS CARE(HIGH) WANDA ELLISON RESIDENT Jul 11, 2025 16:46 PEGGY GARCIA DO Jul 18, 2025 11:56 NELLY BOWEN MD Jul 18, 2025 15:45
[2025-07-12 01:00] VITALS: BP 138/83; PULSE 86; RESP 15; TEMP 98; O2SAT 95
[2025-07-12 05:00] VITALS: BP 152/82; PULSE 78; RESP 16; TEMP 98.1; O2SAT 98
[2025-07-12 05:44] LABS: Albumin 4.3 g/dL (3.2-4.8); Anion Gap 10 (5-15); BUN/Creatinine Ratio 14.9 (10.0-20.0); Bilirubin, Total 0.6 mg/dL (0.2-1.0); Blood Urea Nitrogen 10 mg/dL (9-23); Calcium 9.2 mg/dL (8.7-10.4); Carbon Dioxide 27 mmol/L (20-31); Chloride 104 mmol/L (98-107); Potassium 4.0 mmol/L (3.5-5.1); Sodium 141 mmol/L (136-145); Total Protein 7.5 g/dL (5.7-8.2)
[2025-07-12 05:49] LABS: Alanine Aminotransferase 118 U/L (7-40); Alkaline Phosphatase 130 U/L (46-116); Glucose 163 mg/dL (74-106)
[2025-07-12 09:00] VITALS: BP 142/95; PULSE 80; RESP 18; TEMP 97.5; O2SAT 99
[2025-07-12] MEDS ORDERED: LANC-347 XX (12:05)
[2025-07-12] MEDS ORDERED: METF-490 PO (12:05)
[2025-07-12] MEDS ORDERED: FAMO20TA10 PO (12:05)
[2025-07-12] MEDS ORDERED: CEPH250C PO (12:05)
[2025-07-12] MEDS ORDERED: BLOO1KIT60 XX (12:05)
[2025-07-12] MEDS ORDERED: POLY335015 PO (12:05)
[2025-07-12 13:00] VITALS: BP 142/90; PULSE 71; RESP 18; TEMP 98.2; O2SAT 96
--- NOTE | 2025-07-12 15:07 | DVHDSRES ---
Discharge Summary Date of Admission Resident Creating Document: LEE ANN STARR RESIDENT Jul 06, 2025 at 16:25 Date of Discharge: Jul 12, 2025 Admitting Diagnosis Acute abdominal pain secondary to Urolithiasis Wounds: No open wound was present Labs/Diagnostic Data: Laboratory Results Test 07/12/25 11:27 07/12/25 01:40 07/11/25 05:24 07/10/25 05:42 POC Glucose 148 mg/dl (70-106) Sodium Level 141 mmol/L (136-145) Potassium Level 4.0 mmol/L (3.5-5.1) Chloride Level 104 mmol/L (98-107) Carbon Dioxide Level 27 mmol/L (20-31) Anion Gap 10 (5-15) Blood Urea Nitrogen 10 mg/dL (9-23) Creatinine 0.67 mg/dL (0.550-1.02) Glomerular Filtration Rate Calc 108 mL/min (>90) BUN/Creatinine Ratio 14.9 (10.0-20.0) Serum Glucose 163 mg/dL (74-106) Calcium Level 9.2 mg/dL (8.7-10.4) Total Bilirubin 0.6 mg/dL (0.2-1.0) Aspartate Amino Transferase (AST) 61 U/L (13-40) Alanine Aminotransferase (ALT) 118 U/L (7-40) Alkaline Phosphatase 130 U/L (46-116) Total Protein 7.5 g/dL (5.7-8.2) Albumin 4.3 g/dL (3.2-4.8) Prothrombin Time 10.3 sec (9.3-11.8) Prothrombin Time INR 0.97 (0.9-1.15) Activated Partial Thromboplast Time 28.2 SEC (24.5-34.5) Carcinoembryonic Antigen 0.55 ng/mL (<=5.0) Beta HCG, Quantitative 2.9 mIU/mL (1.5-4.2) White Blood Count 6.7 10^3/uL (4.4-10.8) Red Blood Count 5.34 10^6/uL (4.0-5.20) Hemoglobin 15.1 g/dL (12.2-16.2) Hematocrit 44.1 % (36.0-46.0) Mean Corpuscular Volume 82.7 fL (80.0-100.0) Mean Corpuscular Hemoglobin 28.4 pg (28.0-32.0) Mean Corpuscular Hemoglobin Concent 34.3 g/dL (32.0-36.0) Red Cell Distribution Width 13.4 % (11.8-14.3) Platelet Count 314 10^3/uL (140-450) Mean Platelet Volume 8.5 fL (6.9-10.8) Neutrophils (%) (Auto) 56.0 % (37.0-80.0) Lymphocytes (%) (Auto) 32.8 % (10.0-50.0) Monocytes (%) (Auto) 7.5 % (0.0-12.0) Eosinophils (%) (Auto) 3.2 % (0.0-7.0) Basophils (%) (Auto) 0.5 % (0.0-2.0) Neutrophils # (Auto) 3.8 10 ^3/uL (1.6-8.6) Lymphocytes # (Auto) 2.2 10 ^3/uL (0.4-5.4) Monocytes # (Auto) 0.5 10 ^3/uL (0-1.3) Eosinophils # (Auto) 0.2 10 ^3/uL (0-0.8) Basophils # (Auto) 0 10 ^3/uL (0-0.2) Nucleated Red Blood Cells 0.1 % Vitamin D 25-Hydroxy 25.3 ng/mL (30.0-100) Test 07/07/25 13:04 07/07/25 11:10 07/07/25 04:41 07/06/25 13:16 Anti-Nuclear Antibody Screen Negative (Negative) Urine Color Colorless (Yellow) Urine Clarity Clear (Clear) Urine pH 5.5 (5.0-9.0) Urine Specific [place] 1.004 (1.001-1.035) Urine Protein Negative (Negative) Urine Ketones Negative (Negative) Urine Blood Negative /uL (Negative) Urine Nitrite Negative (Negative) Urine Bilirubin Negative (Negative) Urine Urobilinogen Normal mg/dL (Negative) Urine Leukocyte Esterase Negative /uL (Negative) Urine RBC <1 /hpf (0 - 4) Urine Microscopic WBC < 1 /HPF (0-5) Urine Squamous Epithelial Cells Few /hpf (<5) Urine Bacteria None seen /hpf (None Seen) Urine Glucose 4+ mg/dL (Normal) Hemoglobin A1c 8.8 % A1C (<5.7) Thyroid Stimulating Hormone (TSH) 2.22 uIU/mL (0.55-4.78) Hepatitis A Antibody Total Positive (Negative) Hepatitis B Surface Antigen Negative (Negative) Hepatitis B Surface Antibody Negative (Negative) Hepatitis B Core Total Antibody Negative (Negative) Hepatitis C Antibody Negative (Negative) Lipase 51 U/L (12-53) Other Laboratory Tests 07/12/25 01:40 07/10/25 05:42 Brief Hx & Hospital Course: Ms. Aguirre is a 50-year-old female with prior medical history of anxiety, hiatal hernia, congenital cardiac septal defect s/p repair,who presented to [facility] with chief complaint of abdominal pain. Patient states she has had left-sided abdominal pain for approximately 1 week described as sharp, constant, nonradiating, 10/10 intensity, associated with constipation, bloating sensation, and changes in urine. She denies nausea, vomiting, diarrhea, fever, loss of appetite, generalized weakness, malaise, and palpitations. Due to persistence of symptoms, the patient presented to [facility] Emergency Department for evaluation. On evaluation in the ED, the patient was afebrile, normal cardiac, hypertensive, saturating adequately on room air. Initial labs are significant for hyperglycemia, transaminitis, and UA significant for UTI. CT abdomen/pelvis is significant for punctate left renal calculi, no hydronephrosis and hepatic steatosis. Hospital course: Initial Patient was given fleet enema, 2 times soap isela enema, laxatives and had small bowel movement. GI evaluated the patient and underwent inpatient colonoscopy and revealed Patient has evidence of residual chunks of formed stool and liquid stool present throughout the length of the colon more prominent in the right colon and trace internal hemorrhoids otherwise essentially completely and grossly normal examination up to the cecum without any mass or obstruction. Post colonoscopy patient was taking GoLYTELY to help clean out her bowels as per GI recommendation. New onset of type 2 diabetes mellitus, HbA1c was 8.8 which was controlled in the hospital with basal bolus insulin. Today morning patient mentioned improvement of abdominal pain and had few bowel movements. Discharge plan was discussed with the patient and all questions were answered. patient is being discharged to home with MiraLAX, Keflex 250 mg q.i.d. for 5 days, Pepcid 20 mg b.i.d. for 14 days, metformin hydrochloride ER 1000 mg b.i.d. for 90 days and advised to follow up with the [place] [facility] in 1 week on next Thursday on 07/17/2025. Physical examination: General Appearance: Alert, Oriented X3, Cooperative, No acute distress HEENT: Atraumatic, PERRLA, EOMI, Mucous membrane moist/pink Respiratory: Clear to auscultation, Normal air movement Cardiovascular: Regular rate, Normal S1, Normal S2, No murmurs, no chest wall tenderness Abdominal: Normal bowel sounds, Soft, No tenderness, No hepatospenomegaly, No masses Extremities: No clubbing, No cyanosis, No edema, Normal pulses, No tenderness/swelling Skin: No rashes, No breakdown, No significant lesion Neuro: Normal gait, Normal speech, Strength at 5/5 X4 ext, Normal tone, Sensation intact, Cranial nerves 3-12 NL, Reflexes 2+ Psych/Mental Status: Mental status NL, Mood NL Consults/Reason for consult GI was consulted Operations or Procedures CT CT AB PEL WO CON-NO ORAL OR IV FINDINGS: Lower chest: A couple pulmonary nodules in the left lower lobe measuring up to 4 mm. Liver: Diffusely decreased in attenuation. . Biliary: Status post cholecystectomy. No biliary ductal dilatation. Pancreas: No fat stranding or focal lesion. Spleen: Normal in size.. Adrenal glands: No nodularity. Kidneys: A couple Punctate left renal calculi. No hydroureteronephrosis. . Bladder: Underdistended, limiting evaluation. Reproductive organs: Normal. Bowel: No bowel wall thickening or dilatation. Normal appendix.. Peritoneum: No free fluid. No free air. Vessels: Normal caliber abdominal aorta. . Lymph nodes: No suspicious lymph nodes. Soft tissues: Unremarkable. . Osseous structures: No acute fracture or subluxation. No suspicious osseous lesions. IMPRESSION: 1. Punctate left renal calculi. No hydronephrosis. 2. Hepatic steatosis. 3. A couple pulmonary nodules in the left lower lobe measuring up to 4mm. If the patient is high risk for lung cancer, consider follow-up chest CT in 12 months Operative Report DATE OF OPERATION: 07/11/25 PROCEDURE: Diagnosis Colonoscopy. PREOPERATIVE INDICATION: The patient is a 50 -year-old female undergoing colonoscopy for suspected large bowel obstruction with no bowel movement for two weeks POSTOPERATIVE DIAGNOSES: 1. Patient has evidence of residual chunks of formed stool and liquid stool present throughout the length of the colon more prominent in the right colon 2. Trace internal hemorrhoids otherwise essentially completely and grossly normal examination up to the cecum without any mass or obstruction PROCEDURE PERFORMED BY: Marleny Calixto M.D. SCOPE: Olympus videocolonoscope. ASA CLASS: 3 PREOPERATIVE MEDICATIONS: Mac sedation, PROCEDURE IN DETAIL: After obtaining an informed consent, the patient was placed on left lateral decubitus position. She was then sedated with the above medications. A rectal examination was performed that was normal. The colonoscope was then passed through the anus into the rectosigmoid and through the descending, transverse, and ascending colon up to the cecum with visualization of the appendiceal orifice, base of the cecum and the ileocecal valve. The colonoscope was then withdrawn. No polyps or masses were seen. There was no colitis. There was no obstruction. Patient had evidence of residual chunks of stool and other liquid stool and debris present throughout the colon more prominent in the right colon On retroflexion and straight on view patient had trace to 1+ internal hemorrhoids The patient tolerated the procedure well without difficulty. WITHDRAWAL TIME: 6 minute QUALITY OF THE PREP: [place] Bowel Prep score: Six COMPLICATIONS : None SPECIMENS: None DISPOSITION: Transfer back to the floor Stable PLAN: 1. Resume full liquid diet advance as tolerated ; supportive care 2.Patient will be given GoLYTELY to help clean out her bowels or we can consider using magnesium citrate Condition at Discharge: Guarded Final Diagnosis/Problems List Acute abdominal pain secondary to ureterolithiasis Acute Complicated UTI Slow transit constipation, s/p colonoscopy Transaminitis possibly associated to hepatosteatosis New onset type 2 diabetes mellitus, HbA1c 8.8 Hiatal hernia Discharge Disposition: Home Discharge Instruct/Medications Diet: Consistent carbohydrate Activity: No Restrictions, As Tolerated Follow Up/Referral: Follow up with [place] [facility] in 1week. Medications: As per EMR Scheduled Cephalexin (Keflex Capsule), 1 CAP PO QID Famotidine (Pepcid Tablet), 1 TAB PO BID Metformin Hydrochloride (Metformin Hcl Er), 1 TAB PO BID Polyethylene Glycol 3350 (Miralax), 17 GM PO DAILY Discontinued Medications Ciprofloxacin Hcl (Cipro), 1 TAB PO BID Ondansetron Odt 4MG Tab (Zofran Po), 4 MG PO TID Durable Medical Equipment Blood Glucose Monitoring Suppl (D-Care Glucometer Kit/Glu W/Device), KIT XX TID, (DME) Lancets (Freestyle Lancets), AC XX TID, (DME) Discharge Statement: "Patient was advised to return to the ER or call 911 if any headaches, dizziness, shortness of breath, chest pain, abdominal pain, bleeding, fevers, or worsening of medical condition. Patient was counseled about treatment plan, medications, possible side effects, patientverbalized understanding. All questions were answered to the best of my ability. This discharge took greater then 30 minutes in planning, reviewing documentation, counseling the patient, and discussing with other team members." ASSESSMENT ASSESSMENT Assessment Acute abdominal pain secondary to Urolithiasis Slow transit constipation Acute Complicated UTI Visit Coding STANDARD RES Billing Provider: NELLY VELEZ MD Date of Service if different f: Jul 12, 2025 Common Visit Codes: 90817-MIX/OBS DISCH DAY >30min LEE ANN STARR RESIDENT Jul 12, 2025 15:07 NELLY VELEZ MD Jul 14, 2025 23:54
== END 2025-07-12 15:40 | disposition home or self-care (01) | DRG 465 ==
LOC: ER 12:03 → OVERFLOW 16:25 → WEST WING 16:28
PROVIDERS: ADMIT Student in an Organized Health Care Education/Training Program; ATTEND Student in an Organized Health Care Education/Training Program
PROC: 0DJD8ZZ Inspection of Lower Intestinal Tract, Via Natural or Artificial Opening Endoscopic (ICD-10-PCS; principal; 2025-07-11 14:11)
DX: N20.2 Calculus of kidney with calculus of ureter (principal); E11.9 Type 2 diabetes mellitus without complications; N39.0 Urinary tract infection, site not specified; E66.01 Morbid (severe) obesity due to excess calories; K76.0 Fatty (change of) liver, not elsewhere classified; J45.909 Unspecified asthma, uncomplicated; K44.9 Diaphragmatic hernia without obstruction or gangrene; R74.01 Elevation of levels of liver transaminase levels; K59.09 Other constipation; K59.01 Slow transit constipation; K64.8 Other hemorrhoids; Z68.36 Body mass index [BMI] 36.0-36.9, adult; Z90.49 Acquired absence of other specified parts of digestive tract
CPT/HCPCS: 36415; 74018; 74176; 80053; 81001; 82306; 82378; 82962; 83036; 83690; 84443; 84702; 85025; 85610; 85730; 86038; 86704; 86706; 86708; 86803; 86850; 86900; 86901; 87086; 87340; 96365; 96375; G0378; J1100; J1815; J1885; J2250; J2405; J2470; J2704